=== PATIENT | male | born 1965 | race Two or more races ===

== ENCOUNTER → 2016-11-16 | Outpatient (CLI) | payer BC ==
[2016-11-16 09:19] LABS: Aty Lym Flag Slight; CH 31.2; CHCM 33.3; HCT 42.2 % (39.0-53.0); HDW 1.97; HGB 14.3 gm/dL (13.0-17.5); MCH 31.9 pg (25.0-35.0); Mean Platelet Volume 7.7; RBC 4.49 m/uL (4.30-5.90); RDW 13.9 % (11.5-15.5); WBC 4.1 k/uL (3.8-10.6); WBC (Perox) 3.81
[2016-11-16 10:33] LABS: Add Differential Manual Differential
[2016-11-16 10:36] LABS: ALT 39 U/L (21-72); AST 28 U/L (17-59); Alkaline Phosphatase 45 U/L (38-126); Anion Gap 10 mmol/L; Blood Urea Nitrogen 10 mg/dL (9-20); Calcium 9.5 mg/dL (8.4-10.2); Carbon Dioxide 26 mmol/L (22-30); Chloride 107 mmol/L (98-107); Cholesterol 198 mg/dL (<200); Glucose 128 mg/dL (74-99); HDL Cholesterol 65 mg/dL (40-60); Non-African American GFR(MDRD) >60 (>60 ml/min/1.73 sqM); Potassium 4.3 mmol/L (3.5-5.1); Sodium 143 mmol/L (137-145); Total Bilirubin 0.4 mg/dL (0.2-1.3); Total Protein 7.1 g/dL (6.3-8.2); Triglycerides 77 mg/dL (<150)
[2016-11-16 10:37] LABS: Nucleated Red Blood Cells 0 /100 WBC (0-0); Target Cells Present; Total Cells Counted 100
[2016-11-16 10:58] LABS: Prostate Specific Antigen 0.62 ng/mL (0.00-4.00)
== END ==
LOC: LABWHC1 08:26
PROVIDERS: ATTEND Family Medicine
DX: Z00.00 Encounter for general adult medical examination without abnormal findings (principal); Z12.5 Encounter for screening for malignant neoplasm of prostate
CPT/HCPCS: 36415; 80053; 80061; 84153; 85025

== ENCOUNTER → 2018-01-07 | Outpatient (CLI) | payer BC ==
--- NOTE | 2018-01-07 09:27 | US ---
EXAMINATION TYPE: US prostate transrectal DATE OF EXAM: 01/07/2018 COMPARISON: NONE CLINICAL HISTORY: R97.20 Elevated Elevated prostate specific antigen. Elevated PSA This examination was performed using the transrectal probe. EXAM MEASUREMENTS: Gland Size: 4.8 x 2.3 x 4.6cm Volume: 25.6ml Predicted PSA: 3.1 Actual PSA (if available):4.2 Somewhat heterogeneous gland with calcifications seen within central zone. IMPRESSION: Heterogenous peripheral zone without distinct nodule. Consider biopsy given discordant a ctual PSA and predicted PSA. Predicted PSA = volume x 0.12 ng/ml Calculated Volume = 0.5236 x L x W x H
== END | disposition home or self-care (01) ==
LOC: RADUSMAIN 07:57
PROVIDERS: ATTEND Family Medicine
DX: R97.20 Elevated prostate specific antigen [PSA] (principal)
CPT/HCPCS: 76872

== ENCOUNTER 2020-02-05 04:44 | Emergency (ER) | payer BC ==
[2020-02-05] MEDS ORDERED: SODIUM CHLORIDE 0.9% 1,000 ML IV STA (05:07)
--- NOTE | 2020-02-05 05:08 | ED ---
Overdose HPI - General Chief Complaint: Overdose Stated Complaint: Overdose Time Seen by Provider: 02/05/20 05:07 Source: patient, EMS, RN notes reviewed, old records reviewed Mode of arrival: EMS Limitations: no limitations - History of Present Illness Initial Comments: D This is a 54-year-old male DF for evaluation of accidental overdose and drug ingestion. Patient accommodation of opiate and alcohol prior to arrival. EMS gave Narcan twice, patient here in the emergency department awake and alert observed and answering questions. Patient denying any complaints does admit to taking medication no attempted suicide MD Complaint: accidental overdose -: unknown Intent: unwilling to say How Overdose Was Discovered: family/friend present at time Context: Intentional Overdose: drug/ETOH problems Context: Accidental Overdose: wanted to get high Treatments Prior to Arrival: none, narcan, IV fluids - Related Data Allergies Allergy/AdvReac Type Severity Reaction Status Date / Time No Known Allergies Allergy Verified 02/05/20 04:53 Review of Systems ROS Statement: Those systems with pertinent positive or pertinent negative responses have been documented in the HPI. ROS Other: All systems not noted in ROS Statement are negative. Past Medical History Past Medical History: Diabetes Mellitus, Hypertension History of Any Multi-Drug Resistant Organisms: None Reported Past Surgical History: No Surgical Hx Reported Past Psychological History: No Psychological Hx Reported Smoking Status: Current every day smoker Past Alcohol Use History: Daily Past Drug Use History: Cocaine General Exam Limitations: no limitations General appearance: alert, in no apparent distress, appears intoxicated, lethargic Head exam: Present: atraumatic, normocephalic, normal inspection Eye exam: Present: normal appearance, PERRL, EOMI. Absent: scleral icterus, conjunctival injection, periorbital swelling ENT exam: Present: normal exam, mucous membranes moist Neck exam: Present: normal inspection. Absent: tenderness, meningismus, lymphadenopathy Respiratory exam: Present: normal lung sounds bilaterally. Absent: respiratory distress, wheezes, rales, rhonchi, stridor Cardiovascular Exam: Present: regular rate, normal rhythm, normal heart sounds. Absent: systolic murmur, diastolic murmur, rubs, gallop, clicks GI/Abdominal exam: Present: soft, normal bowel sounds. Absent: distended, tenderness, guarding, rebound, rigid Extremities exam: Present: normal inspection, full ROM, normal capillary refill. Absent: tenderness, pedal edema, joint swelling, calf tenderness Back exam: Present: normal inspection Neurological exam: Present: alert, oriented X3, CN II-XII intact Psychiatric exam: Present: normal affect, normal mood Skin exam: Present: warm, dry, intact, normal color. Absent: rash Course Vital Signs 02/05/20 02/05/20 02/05/20 04:45 05:00 06:00 Temperature 98.0 F Pulse Rate 85 82 79 Respiratory 16 16 14 Rate Blood Pressure 137/84 122/89 120/78 O2 Sat by Pulse 95 96 99 Oximetry 02/05/20 02/05/20 07:00 07:08 Temperature 98.1 F 98.1 F Pulse Rate 79 79 Respiratory 14 14 Rate Blood Pressure 103/66 103/66 O2 Sat by Pulse 95 95 Oximetry - Reevaluation(s) Reevaluation #1: Medical record is reviewed Patient has significant improvement in symptoms awake and alert asking for discharge home Medical Decision Making - Medical Decision Making 54 male coming in with alcohol intoxication and suspected heroin versus opiate overdose symptoms resolved here in the ER patient's awake and alert and can be discharged home - Lab Data Result diagrams: 02/05/20 04:56 02/05/20 04:56 Lab Results 02/05/20 02/05/20 02/05/20 Range/Units 04:56 04:56 06:07 WBC 3.6 L (3.8-10.6) k/uL RBC 4.30 (4.30-5.90) m/uL Hgb 13.6 (13.0-17.5) gm/dL Hct 42.8 (39.0-53.0) % MCV 99.5 (80.0-100.0) fL MCH 31.5 (25.0-35.0) pg MCHC 31.7 (31.0-37.0) g/dL RDW 14.2 (11.5-15.5) % Plt Count 209 (150-450) k/uL Neutrophils % 61 % Lymphocytes % 26 % Monocytes % 8 % Eosinophils % 1 % Basophils % 1 % Neutrophils # 2.2 (1.3-7.7) k/uL Lymphocytes # 1.0 (1.0-4.8) k/uL Monocytes # 0.3 (0-1.0) k/uL Eosinophils # 0.0 (0-0.7) k/uL Basophils # 0.0 (0-0.2) k/uL Sodium 142 (137-145) mmol/L Potassium 4.0 (3.5-5.1) mmol/L Chloride 108 H (98-107) mmol/L Carbon Dioxide 17 L (22-30) mmol/L Anion Gap 17 mmol/L BUN 5 L (9-20) mg/dL Creatinine 0.90 (0.66-1.25) mg/dL Est GFR (CKD-EPI)AfAm >90 (>60 ml/min/1.73 sqM) Est GFR (CKD-EPI)NonAf >90 (>60 ml/min/1.73 sqM) Glucose 295 H (74-99) mg/dL Calcium 8.8 (8.4-10.2) mg/dL Total Bilirubin 0.1 L (0.2-1.3) mg/dL AST 61 H (17-59) U/L ALT 33 (4-49) U/L Alkaline Phosphatase 45 (38-126) U/L Total Protein 7.2 (6.3-8.2) g/dL Albumin 4.4 (3.5-5.0) g/dL Salicylates <1.0 mg/dL Urine Opiates Screen Not Detected (NotDetected) Ur Oxycodone Screen Not Detected (NotDetected) Urine Methadone Screen Not Detected (NotDetected) Ur Propoxyphene Screen Not Detected (NotDetected) Acetaminophen <10.0 ug/mL Ur Barbiturates Screen Not Detected (NotDetected) U Tricyclic Antidepress Not Detected (NotDetected) Ur Phencyclidine Scrn Not Detected (NotDetected) Ur Amphetamines Screen Not Detected (NotDetected) U Methamphetamines Scrn Not Detected (NotDetected) U Benzodiazepines Scrn Not Detected (NotDetected) Urine Cocaine Screen Detected H (NotDetected) U Marijuana (THC) Screen Not Detected (NotDetected) Serum Alcohol 176 mg/dL Disposition Clinical Impression: Accidental drug overdose, Drug overdose, Alcohol intoxication Disposition: HOME SELF-CARE Condition: Good Instructions (If sedation given, give patient instructions): Adult Overdose (ED) Is patient prescribed a controlled substance at d/c from ED?: No Referrals: Lawson Darling MD [Primary Care Provider] - 1-2 days
[2020-02-05 06:10] VITALS: PULSE 79; RESP 14
[2020-02-05 06:27] LABS: Basophils % (A) 1 %; Eosinophils % (A) 1 %; HCT 42.8 % (39.0-53.0); HGB 13.6 gm/dL (13.0-17.5); Lymphocytes % (A) 26 %; MCH 31.5 pg (25.0-35.0); MCHC 31.7 g/dL (31.0-37.0); MCV 99.5 fL (80.0-100.0); Monocytes # (A) 0.3 k/uL (0-1.0); Monocytes % (A) 8 %; Neutrophils # (A) 2.2 k/uL (1.3-7.7); Neutrophils % (A) 61 %; Platelet Count 209 k/uL (150-450); RDW 14.2 % (11.5-15.5); WBC 3.6 k/uL (3.8-10.6)
[2020-02-05 06:35] LABS: ALT 33 U/L (4-49); AST 61 U/L (17-59); Acetaminophen <10.0 ug/mL; African American GFR (CKD) >90 (>60 ml/min/1.73 sqM); Albumin 4.4 g/dL (3.5-5.0); Alkaline Phosphatase 45 U/L (38-126); Blood Urea Nitrogen 5 mg/dL (9-20); Calcium 8.8 mg/dL (8.4-10.2); Carbon Dioxide 17 mmol/L (22-30); Glucose 295 mg/dL (74-99); Non-African American GFR(CKD) >90 (>60 ml/min/1.73 sqM); Salicylate <1.0 mg/dL; Sodium 142 mmol/L (137-145); Total Bilirubin 0.1 mg/dL (0.2-1.3); Total Protein 7.2 g/dL (6.3-8.2)
[2020-02-05 06:40] LABS: Amphetamine Screen,Urine Not Detected (NotDetected); Barbiturate Screen,Urine Not Detected (NotDetected); Benzodiazepines Screen,Urine Not Detected (NotDetected); Cocaine Screen,Urine Detected (NotDetected); Methadone Screen, Urine Not Detected (NotDetected); Opiate Screen,Urine Not Detected (NotDetected); Oxycodone Screen, Urine Not Detected (NotDetected); Phencyclidine Screen,Urine Not Detected (NotDetected); Tricyclic Antidepressant,Urine Not Detected (NotDetected); Urn Cannabinoid Scrn Not Detected (NotDetected)
[2020-02-05 06:48] LABS: Alcohol 176 mg/dL
[2020-02-05 06:50] LABS: Anion Gap 17 mmol/L; Chloride 108 mmol/L (98-107)
[2020-02-05 07:02] VITALS: BP 103/66; TEMP 98.1
== END 2020-02-05 07:12 | disposition home or self-care (01) ==
LOC: EC 04:44
DX: T40.601A Poisoning by unspecified narcotics, accidental (unintentional), initial encounter (principal); F10.129 Alcohol abuse with intoxication, unspecified; F17.200 Nicotine dependence, unspecified, uncomplicated
CPT/HCPCS: 36415; 80053; 80306; 80320; 80329; 83520; 85025; 96360; 99285

== ENCOUNTER 2020-04-22 15:10 | Emergency (ER) | payer BC ==
[2020-04-22 15:16] VITALS: BP 148/88; PULSE 94; RESP 18; TEMP 99.2
--- NOTE | 2020-04-22 15:54 | ED ---
Alcohol HPI - General Chief Complaint: Alcohol Stated Complaint: Alcohol Detox Time Seen by Provider: 04/22/20 15:24 Source: patient Mode of arrival: ambulatory Limitations: no limitations - History of Present Illness Initial Comments: Patient is a 55-year-old male with history of substance abuse and alcohol abuse presenting to the emergency department with chief complaint of alcohol intoxication and psychiatric evaluation. Patient states he has been a heavy drinker for about 30 years. Patient reports he typically drinks 6-12 beers per day. Patient states never attempted rehab but states he feels ready now. Patient states his nephew recently committed suicide and this has put him over the top. He denies any homicidal, suicidal thoughts or ideations. His friend spoke outside of the examination room and said the patient has also been doing crack and had once overdosed after he smoked crack that was laced with fentanyl. His friend also states his drinking behavior has been drastically increased since his nephew's . She states the patient lives with a roommate in his house - Related Data Allergies Allergy/AdvReac Type Severity Reaction Status Date / Time No Known Allergies Allergy Verified 04/22/20 15:16 Review of Systems ROS Statement: Those systems with pertinent positive or pertinent negative responses have been documented in the HPI. ROS Other: All systems not noted in ROS Statement are negative. Past Medical History Past Medical History: Diabetes Mellitus, Hypertension History of Any Multi-Drug Resistant Organisms: None Reported Past Surgical History: No Surgical Hx Reported Past Psychological History: No Psychological Hx Reported Smoking Status: Current every day smoker Past Alcohol Use History: Abuse, Daily Past Drug Use History: Cocaine General Exam Limitations: no limitations General appearance: alert, in no apparent distress Head exam: Present: atraumatic, normocephalic, normal inspection Eye exam: Present: normal appearance, PERRL, EOMI Pupils: Present: normal accommodation ENT exam: Present: normal exam, normal oropharynx, mucous membranes dry Neck exam: Present: normal inspection, full ROM. Absent: tenderness Respiratory exam: Present: normal lung sounds bilaterally. Absent: respiratory distress, wheezes Cardiovascular Exam: Present: normal rhythm, tachycardia, normal heart sounds Extremities exam: Present: normal inspection, full ROM Back exam: Present: normal inspection, full ROM Neurological exam: Present: alert, oriented X3 Psychiatric exam: Present: normal affect, normal mood Skin exam: Present: warm, dry, intact, normal color Course Vital Signs 04/22/20 04/22/20 04/22/20 15:13 15:16 16:16 Temperature 99.2 F Pulse Rate 94 Respiratory 18 18 18 Rate Blood Pressure 148/88 O2 Sat by Pulse 96 Oximetry Medical Decision Making - Medical Decision Making Patient 55-year-old male with history of substance abuse and alcohol abuse presenting to the emergency department for psychiatric evaluation alcohol intoxication. I evaluated the patient and he was medically cleared for psychiatric evaluation. Patient did drink prior to ED arrival and laboratory work was obtained to determine alcohol levels. While the laboratory work was pending, patient decided to leave AGAINST MEDICAL ADVICE. Case discussed with physician. - Lab Data Lab Results 04/22/20 Range/Units 17:15 Urine Color Yellow Urine Appearance Clear (Clear) Urine pH 6.0 (5.0-8.0) Ur Specific [place] 1.005 (1.001-1.035) Urine Protein Negative (Negative) Urine Glucose (UA) 4+ H (Negative) Urine Ketones Negative (Negative) Urine Blood Negative (Negative) Urine Nitrite Negative (Negative) Urine Bilirubin Negative (Negative) Urine Urobilinogen <2.0 (<2.0) mg/dL Ur Leukocyte Esterase Negative (Negative) Urine Opiates Screen Not Detected (NotDetected) Ur Oxycodone Screen Not Detected (NotDetected) Urine Methadone Screen Not Detected (NotDetected) Ur Propoxyphene Screen Not Detected (NotDetected) Ur Barbiturates Screen Not Detected (NotDetected) U Tricyclic Antidepress Not Detected (NotDetected) Ur Phencyclidine Scrn Not Detected (NotDetected) Ur Amphetamines Screen Not Detected (NotDetected) U Methamphetamines Scrn Not Detected (NotDetected) U Benzodiazepines Scrn Not Detected (NotDetected) Urine Cocaine Screen Not Detected (NotDetected) U Marijuana (THC) Screen Not Detected (NotDetected) Disposition Clinical Impression: Alcoholic intoxication Disposition: Left Against Medical Advice Condition: Good Is patient prescribed a controlled substance at d/c from ED?: No Referrals: Lawson Darling MD [Primary Care Provider] - 1-2 days Time of Disposition: 18:25
[2020-04-22 17:56] LABS: Appearance,Urine Clear (Clear); Color,Urine Yellow; Glucose,Urine (UA) 4+ (Negative); Ketones,Urine Negative (Negative); Protein,Urine Negative (Negative); Specific Gravity,Urine 1.005 (1.001-1.035)
[2020-04-22 17:57] LABS: Bilirubin,Urine Negative (Negative); Blood,Urine Negative (Negative); Leukocyte Esterase,Urine Negative (Negative); Nitrite,Urine Negative (Negative); Urobilinogen,Urine <2.0 mg/dL (<2.0)
[2020-04-22 18:06] LABS: Amphetamine Screen,Urine Not Detected (NotDetected); Barbiturate Screen,Urine Not Detected (NotDetected); Benzodiazepines Screen,Urine Not Detected (NotDetected); Cocaine Screen,Urine Not Detected (NotDetected); Methadone Screen, Urine Not Detected (NotDetected); Opiate Screen,Urine Not Detected (NotDetected); Oxycodone Screen, Urine Not Detected (NotDetected); Phencyclidine Screen,Urine Not Detected (NotDetected); Tricyclic Antidepressant,Urine Not Detected (NotDetected); Urn Cannabinoid Scrn Not Detected (NotDetected)
== END 2020-04-22 17:40 | disposition left against medical advice (07) ==
LOC: EC 15:10
DX: F10.129 Alcohol abuse with intoxication, unspecified (principal); Y90.9 Presence of alcohol in blood, level not specified; F17.200 Nicotine dependence, unspecified, uncomplicated; Z53.29 Procedure and treatment not carried out because of patient's decision for other reasons
CPT/HCPCS: 80306; 81003; 99283

== ENCOUNTER 2020-04-24 13:10 | Emergency (ER) | payer BC ==
[2020-04-24 13:35] VITALS: BP 150/100; PULSE 93; RESP 18; TEMP 98.3
--- NOTE | 2020-04-24 13:48 | ED ---
General Adult HPI - General Chief complaint: Alcohol Stated complaint: Alcohol Time Seen by Provider: 04/24/20 13:37 Source: patient Mode of arrival: ambulatory Limitations: no limitations - History of Present Illness Initial comments: Dictation was produced using [employer] dictation software. please excuse any grammatical, word or spelling errors. This patient was cared for during a federal and state declared state of emergency secondary to Covid 19 Chief Complaint: 55-year-old male looking for alcohol rehab History of Present Illness: 55-year-old male patient states that over the last week she's been drinking heavily. He's been having multiple 24 ounce beers a day. Patient states that he is drinking all day today. He feels depressed however he is not suicidal or homicidal. Denies any psychiatric history. He is upset because his parents are very sick and his other young family member recently committed suicide. Patient has ever having had EtOH withdrawal in the past. Does not feel shaky. The ROS documented in this emergency department record has been reviewed and confirmed by me. Those systems with pertinent positive or negative responses have been documented in the HPI. All other systems are other negative and/or noncontributory. PHYSICAL EXAM: General Impression: Alert and oriented x3, not in acute distress HEENT: Normocephalic atraumatic, extra-ocular movements intact, pupils equal and reactive to light bilaterally, mucous membranes moist. Cardiovascular: Heart regular rate and rhythm Chest: Able to complete full sentences, no retractions, no tachypnea Abdomen: abdomen soft, non-tender, non-distended, no organomegaly Musculoskeletal: Pulses present and equal in all extremities, no peripheral e stacy Motor: no focal deficits noted Neurological: CN II-XII grossly intact, no focal motor or sensory deficits noted Skin: Intact with no visualized rashes Psych: Depressed ED course: 55-year-old male presents with request for alcohol detoxification. Vital signs upon arrival are within acceptable limits. Discussed with patient that we are not a alcohol rehab facility. He doesn't appear to be significantly inebriated. He is not showing any signs of withdrawal. He is not suicidal or homicidal.Arrangements were made for patient to be accepted at [facility]. Patient instructed to go there to be admitted to the rehab program. - Related Data Allergies Allergy/AdvReac Type Severity Reaction Status Date / Time No Known Allergies Allergy Verified 04/24/20 13:34 Review of Systems ROS Statement: Those systems with pertinent positive or pertinent negative responses have been documented in the HPI. ROS Other: All systems not noted in ROS Statement are negative. Past Medical History Past Medical History: Diabetes Mellitus, Hypertension History of Any Multi-Drug Resistant Organisms: None Reported Past Surgical History: No Surgical Hx Reported Past Psychological History: No Psychological Hx Reported Smoking Status: Current every day smoker Past Alcohol Use History: Abuse, Daily Past Drug Use History: Cocaine General Exam Limitations: no limitations Course Vital Signs 04/24/20 13:30 Temperature 98.3 F Pulse Rate 93 Respiratory 18 Rate Blood Pressure 150/100 O2 Sat by Pulse 98 Oximetry Medical Decision Making - Lab Data Lab Results 04/24/20 Range/Units 14:06 POC Glucose (mg/dL) 300 H (75-99) mg/dL POC Glu Record Pressman ID Jazlyn Moya Disposition Clinical Impression: Alcoholism Disposition: HOME SELF-CARE Condition: Good Instructions (If sedation given, give patient instructions): Alcohol Intoxication (ED) Additional Instructions: Please follow up with [facility] as instructed by nurse Is patient prescribed a controlled substance at d/c from ED?: No Referrals: Lawson Darling MD [Primary Care Provider] - 1-2 days Time of Disposition: 14:38
[2020-04-24 14:08] LABS: Glucose,Whole Blood 300 mg/dL (75-99)
== END 2020-04-24 14:53 | disposition home or self-care (01) ==
LOC: EC 13:10
DX: F10.20 Alcohol dependence, uncomplicated (principal); F17.200 Nicotine dependence, unspecified, uncomplicated; Y90.9 Presence of alcohol in blood, level not specified
CPT/HCPCS: 36415; 99284

== ENCOUNTER 2022-09-26 17:13 | Emergency (ER) | payer BC, OTHER ==
[2022-09-26 17:29] VITALS: TEMP 98
[2022-09-26] MEDS ORDERED: KETOROLAC 15 MG/ML 1 ML VIAL IM STA (17:55)
[2022-09-26] MEDS ORDERED: ORPHENADRINE 30 MG/ML 2 ML VIAL IM STA (17:55)
--- NOTE | 2022-09-26 17:58 | ED ---
Back Pain HPI - General Chief Complaint: Back Pain/Injury Stated Complaint: back pain Time Seen by Provider: 09/26/22 17:49 Source: patient, RN notes reviewed Limitations: no limitations - History of Present Illness Initial Comments: This is a nontoxic appearing 57-year-old male that presents ambulatory with complaints of left lower back pain on and off for a month. States that he was at work does a lot of bending the pain is worse. Worse when he sits or twists. Denies any heavy lifting or injuries. He believes this is related to repetitive movements. Didn't go to the clinic who recommended he come to the emergency room for x-ray. Does have a history of hypertension and diabetes MD Complaint: back pain -: month(s) Similar Symptoms Previously: Yes Place: work Radiation: none Severity: moderate Severity scale (1-10): 9 Consistency: intermittent Improves With: none Worsens With: movement ( bending or twisting) Context: bending Associated Symptoms: denies other symptoms - Related Data Previous Rx's Medication Instructions Recorded Cyclobenzaprine [Flexeril] 10 mg PO TID PRN #15 tab 09/26/22 Ibuprofen [Motrin] 600 mg PO Q8HR PRN #30 tab 09/26/22 Lidocaine 5% Patch [Lidoderm] 1 patch TOPICAL DAILY 14 Days #14 09/26/22 patch Allergies Allergy/AdvReac Type Severity Reaction Status Date / Time No Known Allergies Allergy Verified 04/24/20 13:34 Review of Systems ROS Statement: Those systems with pertinent positive or pertinent negative responses have been documented in the HPI. ROS Other: All systems not noted in ROS Statement are negative. Past Medical History Past Medical History: Diabetes Mellitus, Hypertension History of Any Multi-Drug Resistant Organisms: None Reported Past Surgical History: No Surgical Hx Reported Past Psychological History: No Psychological Hx Reported Smoking Status: Current every day smoker Past Alcohol Use History: Abuse, Daily Past Drug Use History: Cocaine General Exam Limitations: no limitations General appearance: alert, in no apparent distress Head exam: Present: atraumatic Neck exam: Absent: tenderness, meningismus Respiratory exam: Absent: respiratory distress, accessory muscle use Cardiovascular Exam: Present: regular rate Back exam: Present: paraspinal tenderness (left lumbar). Absent: CVA tenderness (R), CVA tenderness (L), vertebral tenderness Neurological exam: Present: alert, oriented X3, normal gait Psychiatric exam: Present: normal affect, normal mood Skin exam: Present: warm, dry, normal color. Absent: cyanosis, diaphoretic, pallor Course Vital Signs 09/26/22 09/26/22 17:26 19:04 Temperature 98 F Pulse Rate 86 100 Respiratory 20 18 Rate Blood Pressure 132/76 171/82 O2 Sat by Pulse 98 100 Oximetry Medical Decision Making - Medical Decision Making X-ray lumbar spine interpreted by me shows no malalignment or acute fracture. Radiologist interpretation shows no fracture or malalignment. Soft tissues are unremarkable. Due to complaints of left-sided back pain urinalysis was ordered. Urinalysis negative for infection or hematuria, positive for glucose. Patient is diabetic with history of hypertension. Patient is up ambulating in the hallway. No bowel or bladder incontinence. No trauma. Patient states worse with bending and twisting. No right concerning red flag symptoms. Patient was given Norflex, Toradol and Lidoderm patch for his pain and discomfort. Prescription was written for Lidoderm patches, Motrin and Flexeril Dr. Cruz Was pt. sent in by a medical professional or institution? @ -urgent care Did you speak to anyone other than the patient for history? @ -no Did you review nursing and triage notes? @ -yes i agree Were old charts reviewed? @ -no Differential Diagnosis? @ -Differential Back Pain: Strain, zoster, cauda equina syndrome, epidural abscess, vertebral osteomyelitis, discitis, fracture, subluxation, disc herniation, DJD, spinal stenosis, dissection, AAA, pancreatitis, peptic ulcer disease, pyelonephritis, kidney stone, this is not meant to be an all-inclusive list. EKG interpreted by me (3pts min.)? @ -[none] X-rays interpreted by me (1pt min.)? @ -yes as above CT interpreted by me (1pt min.)? @ -[none] U/S interpreted by me (1pt. min.)? @ -[none] What testing was considered but not performed? (CT, X-rays, U/S, labs)? Why? @ no What meds were considered but not given? Why? @ -none Did you discuss the management of the patient with other professionals? @ -no Did you reconcile home meds? @ -no Was smoking cessation discussed for >3mins.? @ -no Was critical care preformed (if so, how long)? @ -no Were there social determinants of health that impacted care today? How? (Homelessness, low income, unemployed, alcoholism, drug addiction, transportation, low edu. Level, literacy, decrease access to med. care, group home, rehab)? @ -none Was there de-escalation of care discussed even if they declined? (Discuss DNR or withdrawal of care, Hospice)? @ -no What co-morbidities impacted this encounter? (DM, HTN, Smoking, COPD, CAD, Cancer, CVA, Hep., AIDS, mental health diagnosis, sleep apnea, morbid obesity)? @ -Diabetes, hypertension Was patient admitted / discharged? @ -Discharged Undiagnosed new problem with uncertain prognosis? @ -[none] Drug Therapy requiring intensive monitoring for toxicity (Heparin, Nitro, Insulin, Cardizem)? @ -no Were any procedures done? @ -no Diagnosis/symptom? @ -[default] Acute, or Chronic, or Acute on Chronic? @ -acute Uncomplicated (without systemic symptoms) or Complicated (systemic symptoms)? @ -Uncomplicated Side effects of treatment? @ -[none] Exacerbation, Progression, or Severe Exacerbation] @ -[no] Poses a threat to life or bodily function? @ -[no] - Lab Data Lab Results 09/26/22 Range/Units 18:35 Urine Color Colorless Urine Appearance Clear (Clear) Urine pH 5.5 (5.0-8.0) Ur Specific [place] 1.002 (1.001-1.035) Urine Protein Negative (Negative) Urine Glucose (UA) 3+ H (Negative) Urine Ketones Negative (Negative) Urine Blood Negative (Negative) Urine Nitrite Negative (Negative) Urine Bilirubin Negative (Negative) Urine Urobilinogen <2.0 (<2.0) mg/dL Ur Leukocyte Esterase Negative (Negative) Disposition Clinical Impression: Low back pain Disposition: HOME SELF-CARE Condition: Good Instructions (If sedation given, give patient instructions): Acute Low Back Pain (ED) Additional Instructions: Take Tylenol and Motrin as needed for any pain or discomfort. Use Lidoderm patches to the site of pain. You can also take Flexeril as a muscle relaxer as needed. Do not drink alcohol or operate machinery when taking this muscle relaxer. Follow-up with the primary care doctor next week. Prescriptions: Cyclobenzaprine [Flexeril] 10 mg PO TID PRN #15 tab PRN Reason: Muscle Spasm Lidocaine 5% Patch [Lidoderm] 1 patch TOPICAL DAILY 14 Days #14 patch Ibuprofen [Motrin] 600 mg PO Q8HR PRN #30 tab PRN Reason: Pain Is patient prescribed a controlled substance at d/c from ED?: No Referrals: Lawson Darling MD [Primary Care Provider] - 1-2 days Time of Disposition: 18:54
[2022-09-26] MEDS ORDERED: LIDOCAINE 5% PATCH TOPICAL SCH (18:00)
--- NOTE | 2022-09-26 18:42 | XR ---
PROCEDURE: XR lumbar spine - 3V DATE AND TIME: 09/26/2022 6:13 PM CLINICAL INDICATION: low back pain TECHNIQUE: Department protocol COMPARISON: None FINDINGS: There is no fracture or malalignment. Mild/moderate multilevel lumbar spondylosis noted. The soft tissues are unremarkable. IMPRESSION: No acute process.
[2022-09-26 18:49] LABS: Appearance,Urine Clear (Clear); Bilirubin,Urine Negative (Negative); Blood,Urine Negative (Negative); Color,Urine Colorless; Glucose,Urine (UA) 3+ (Negative); Ketones,Urine Negative (Negative); Leukocyte Esterase,Urine Negative (Negative); Nitrite,Urine Negative (Negative); PH, Urine 5.5 (5.0-8.0); Protein,Urine Negative (Negative); Specific Gravity,Urine 1.002 (1.001-1.035); Urobilinogen,Urine <2.0 mg/dL (<2.0)
[2022-09-26 19:04] VITALS: BP 171/82; PULSE 100; RESP 18
== END 2022-09-26 19:04 | disposition home or self-care (01) ==
LOC: EC 17:13
DX: M54.50 Low back pain, unspecified (principal); I10 Essential (primary) hypertension; E11.9 Type 2 diabetes mellitus without complications; F17.200 Nicotine dependence, unspecified, uncomplicated
CPT/HCPCS: 81003; 72100; 99284; 96372 ×2; J2360; J1885

== ENCOUNTER → 2022-10-01 | Outpatient (CLI) | payer OTHER ==
--- NOTE | 2022-10-01 13:54 | CT ---
EXAMINATION TYPE: CT lumbar spine wo con DATE OF EXAM: 10/01/2022 1:38 PM COMPARISON: None HISTORY: Low back pain CT DLP: 950.20 mGycm Automated exposure control for dose reduction was used. Unenhanced CT of the lumbar spine was performed. Bone and soft tissue window settings are submitted as well as coronal and sagittal reconstructions. L1-L2: Normal disc space height. No disc herniation protrusion or central stenosis. No facet joint arthropathy. No evidence for foraminal encroachment. L2-L3: Mild degenerative disc space narrowing. Mild posterior disc bulge with minimal effacement vent ral thecal sac. No evidence for disc herniation or central stenosis. Neural foramina are patent bilat erally. Mild ventral spondylosis. L3-L4: Normal disc space height. No disc herniation protrusion or central stenosis. No facet joint arthropathy. No evidence for foraminal encroachment. L4-L5: Mild degenerative disc space narrowing. Prominent disc bulge far laterally into the right. Sub ligamentous herniation is difficult to exclude. Mild right foraminal encroachment. No central stenosi s. L5-S1: Normal disc space height. No disc herniation protrusion or central stenosis. No facet joint arthropathy. No evidence for foraminal encroachment. Lumbar segments are intact. No evidence for fracture or malalignment. IMPRESSION: 1. Mild degenerative disc space narrowing as discussed above. 2. Far lateral into the right L4-5 broad-based disc bulge. Herniation difficult to exclude. Mild righ t neural foraminal encroachment.
== END | disposition home or self-care (01) ==
LOC: RADCTMAIN 13:15
PROVIDERS: ATTEND Emergency Medicine
DX: S39.012D Strain of muscle, fascia and tendon of lower back, subsequent encounter (principal); M51.36 Other intervertebral disc degeneration, lumbar region; M99.73 Connective tissue and disc stenosis of intervertebral foramina of lumbar region
CPT/HCPCS: 72131

== ENCOUNTER → 2023-01-30 | Outpatient (CLI) | payer OTHER ==
[2023-01-30 14:48] VITALS: BP 129/81; PULSE 107; RESP 18
== END ==
LOC: PNWHC3 12:30
PROVIDERS: ATTEND Specialist
DX: M51.36 Other intervertebral disc degeneration, lumbar region (principal); F17.200 Nicotine dependence, unspecified, uncomplicated
CPT/HCPCS: 99211

== ENCOUNTER 2023-02-25 08:46 | Day surgery (SDC) | payer OTHER ==
[2023-02-25 09:23] LABS: Glucose,Whole Blood 172 mg/dL (70-110)
[2023-02-25 09:24] VITALS: TEMP 97
[2023-02-25] MEDS ORDERED: methylPREDNISolone ACETATE 40 MG/ML 1 ML VIAL ONE (09:34)
[2023-02-25] MEDS ORDERED: IOPAMIDOL M200 10 ML VIAL ONE (09:34)
--- NOTE | 2023-02-25 09:42 | P.PCN ---
Date of Procedure: 02/25/23 Description of Procedure: Procedure: 1. L4-L5 Epidural steroid injection under fluoroscopic guidance # 1/ , 2. Lumbar epidurogram PREOPERATIVE DIAGNOSIS: Lumbar degenerative disc disease, and Lumbar radiculopathy. POSTOPERATIVE DIAGNOSIS: Lumbar degenerative disc disease, and Lumbar radiculopathy. SURGEON: Brett Oruorke ANESTHESIA: Local with 1% lidocaine, and IV sedation: None EBL: None. Specimen removed: None Fluoroscopic image: saved to electronic medical records PROCEDURE INDICATION: The patient had history of Lumbar degenerative disc disease and Lumbar radiculopathy. Failed to conservative therapy. Presented for epidural steroid injection. PROCEDURE DESCRIPTION: The patient was seen and identified in the preoperative area. Risks, benefits, complications, and alternatives were discussed with the patient. The patient agreed to proceed with the procedure and signed the consent. IV was started, and vital signs were stable. Patient was taken to the procedure area, and time out was completed. The patient was placed in the prone position on procedure table and a pillow was placed under the abdomen to reduce lumbar lordosis. The lumbosacral area was prepped and draped in the usual sterile fashion. Critical pause was taken. Vital signs were closely monitored during the procedure. Using anterior-posterior fluoroscopy, the L4-L5 interlaminar space was identified, and skin and deeper tissues were localized with 1% lidocaine. Using anterior-posterior fluoroscopy, lateral fluoroscopy, and [id number] technique, a 20 gauge 3.5 Tuohy epidural needle entered the epidural space. After negative aspiration of CSF and blood with no paresthesias, 1 ml of [id number] contrast dye was injected and an excellent epidurogram was seen. Again after negative aspiration of CSF and blood with no paresthesias, 8 mL of block solution was injected into the epidural space. Block solution contained 40 mg of Depo-Medrol, and 7 mL of preservative-free normal saline. Needle was withdrawn intact, skin was cleansed, and bandages were applied. COMPLICATIONS: None. DISPOSITION / PLANS: The patient was placed in a supine position and transferred to the recovery area in a stable condition for observation. Patient was discharged from the recovery room after meeting discharge criteria. Home discharge instructions given to the patient by the staff. The patient was reexamined prior to discharge. The patient will schedule a follow up in the clinic in 4 weeks.
[2023-02-25] MEDS ORDERED: LACTATED RINGERS 1,000 ML IV SCH (09:45)
[2023-02-25 09:48] VITALS: PULSE 85
[2023-02-25 09:55] VITALS: BP 122/61; RESP 16
--- NOTE | 2023-02-25 10:13 | FL ---
Intraoperative/procedural fluoroscopic services were provided. Total fluoroscopy time is 3 seconds wi th a total of 3 submitted images to PACS. Please see the operative/procedural note for further detail s. DAP: [id number] mGym2
== END 2023-02-25 10:02 | disposition home or self-care (01) ==
LOC: ORPAIN 08:46
DX: M51.16 Intervertebral disc disorders with radiculopathy, lumbar region (principal); E11.9 Type 2 diabetes mellitus without complications; I10 Essential (primary) hypertension; E78.00 Pure hypercholesterolemia, unspecified; Z98.890 Other specified postprocedural states; Z79.84 Long term (current) use of oral hypoglycemic drugs; Z79.82 Long term (current) use of aspirin; Z79.899 Other long term (current) drug therapy
CPT/HCPCS: 62323; J1030; Q9966

== ENCOUNTER 2023-05-11 12:45 | Inpatient (IN) | payer OTHER ==
[2023-05-11] MEDS ORDERED: PANTOPRAZOLE 40 MG/10 ML VIAL IVP STA (13:02)
[2023-05-11] MEDS ORDERED: SODIUM CHLORIDE 0.9% 1,000 ML IV STA (13:02)
[2023-05-11] MEDS ORDERED: ONDANSETRON 4 MG/2 ML VIAL IVP STA (13:02)
[2023-05-11] MEDS ORDERED: LORazepam 2 MG/ML INJ IV PRN ×2 (13:03)
[2023-05-11] MEDS ORDERED: THIAMINE 100 MG/ML 2 ML VIAL IM STA (13:03)
[2023-05-11] MEDS ORDERED: LORazepam 2 MG/ML INJ IV STA (13:05)
[2023-05-11 13:25] LABS: Basophils % (A) 0 %; Eosinophils # (A) 0.1 k/uL (0-0.7); Eosinophils % (A) 2 %; HGB 13.1 gm/dL (13.0-17.5); Lymphocytes # (A) 0.4 k/uL (1.0-4.8); Lymphocytes % (A) 7 %; MCHC 34.4 g/dL (31.0-37.0); MCV 98.8 fL (80.0-100.0); Mean Platelet Volume 9.7; Monocytes # (A) 0.5 k/uL (0-1.0); Monocytes % (A) 8 %; Neutrophils # (A) 5.3 k/uL (1.3-7.7); Neutrophils % (A) 83 %; RBC 3.85 m/uL (4.30-5.90); RDW 14.5 % (11.5-15.5); WBC 6.4 k/uL (3.8-10.6)
[2023-05-11 13:35] LABS: African American GFR (CKD) >90 (>60 ml/min/1.73 sqM); Albumin 4.5 g/dL (3.5-5.0); Alcohol <10 mg/dL; Alkaline Phosphatase 66 U/L (38-126); Amylase 39 U/L (30-110); Anion Gap 18 mmol/L; Blood Urea Nitrogen 4 mg/dL (9-20); Calcium 9.8 mg/dL (8.4-10.2); Carbon Dioxide 21 mmol/L (22-30); Chloride 97 mmol/L (98-107); Glucose 320 mg/dL (74-99); Lipase 161 U/L (23-300); Non-African American GFR(CKD) >90 (>60 ml/min/1.73 sqM); Potassium 3.7 mmol/L (3.5-5.1); Sodium 136 mmol/L (137-145); Total Bilirubin 1.5 mg/dL (0.2-1.3); Total Protein 7.5 g/dL (6.3-8.2)
[2023-05-11 13:44] LABS: ALT 200 U/L (4-49); AST 694 U/L (17-59)
[2023-05-11 13:45] LABS: Prothrombin Time 10.3 sec (9.0-12.0)
--- NOTE | 2023-05-11 13:47 | ED ---
General Adult HPI - General Chief complaint: Nausea/Vomiting/Diarrhea Stated complaint: Fall, weakness Time Seen by Provider: 05/11/23 12:47 Source: patient, RN notes reviewed, old records reviewed Mode of arrival: EMS Limitations: altered mental status, physical limitation - History of Present Illness Initial comments: Patient is a 58-year-old male with past medical history remarkable for diabetes, hypertension, chronic alcohol abuse who presents emergency Department after falling at home. Fell off the porch a few days ago. States he feels weak in both his his leg since the incident. States he cannot walk because of weakness. Has been unable to get up and move around. Has been having nausea, vomiting. Has been tremoring. States he drinks beer. Denies any history of alcohol withdrawals. Hasn't drank in a few days. Has no other acute complaints at this time. Denies chest pain, fevers, chills, cough, abdominal pain, nausea, vomiting. Endorses chronic low back pain. His no other acute complaints. Unknown if he lost consciousness. Presents for further evaluation. Currently covered in his own urine smells of alcohol and urine.Patient claims he has been stuck in bed and so weak he cannot move for the last few days since the f all.Patient denies any urinary or bowel incontinence or retention. Denies any saddle anesthesias. Endorses weakness but it appears to be diffuse in the upper extremities as well. - Related Data Home Medications Medication Instructions Recorded Confirmed Empagliflozin [Jardiance] 25 mg PO DAILY 02/21/23 05/11/23 lisinopriL 2.5 mg PO DAILY 02/21/23 05/11/23 metFORMIN HCL [Metformin HCl] 1,000 mg PO BID 02/21/23 05/11/23 Rosuvastatin [Crestor] 10 mg PO HS 05/11/23 05/11/23 Allergies Allergy/AdvReac Type Severity Reaction Status Date / Time No Known Allergies Allergy Verified 05/11/23 15:09 Review of Systems ROS Statement: Those systems with pertinent positive or pertinent negative responses have been documented in the HPI. Review of Systems: CONST: Denies fever EYES: Denies blurry vision ENT: Denies nasal congestion C/V: Denies Chest pain RESP: Denies shortness of breath GI: Denies abdominal pain : Denies dysuria SKIN: Denies rash. MSK: Endorses back pain NEURO: Endorses weakness ROS Other: All systems not noted in ROS Statement are negative. Past Medical History Past Medical History: Diabetes Mellitus, Hyperlipidemia, Hypertension Additional Past Medical History / Comment(s): lower back pain, hurt back at work History of Any Multi-Drug Resistant Organisms: None Reported Past Surgical History: Hernia Repair Past Anesthesia/Blood Transfusion Reactions: No Reported Reaction Past Psychological History: No Psychological Hx Reported Smoking Status: Never smoker Past Alcohol Use History: Occasional Past Drug Use History: None Reported - Past Family History Father Family Medical History: Cancer General Exam - General Exam Comments Initial Comments: General: Appears to be having alcohol withdrawals as patient has tongue fasciculations as well as generalized tremors. HEAD: Normal with no signs of head trauma. EYES: PERRLA, EOMI, conjunctiva normal, no discharge. Pupils are 3 mm equal bilaterally. ENT: Hearing grossly intact, normal oropharynx. Dry mucous membranes. RESPIRATORY: Clear breath sounds bilaterally. No wheezes, rales, or rhonchi. C/V: Regular rate and rhythm. S1 and S2 auscultated, no edema, peripheral pul ses 2+ and intact throughout ABD: Abd is soft, nontender, nondistended EXT: Normal range of motion, no obvious deformity. Patient has left lower lumbar spine tenderness to palpation primarily in the paraspinal muscles which patient states is chronic. No midline spinal tenderness to palpation of the thoracic, cervical spine. No step-offs or deformities. Pelvis is stable. No tenderness to palpation of the extremities. Able to move all 4 extremity is without issue except for generalized weakness. SKIN: No rashes or lesions observed on exposed skin. NEURO: Alert and oriented 4. Weakness that is symmetrical in bilateral lower extremities and upper extremities. 4-5 strength throughout. No focal weakness. GCS of 15. NIH is 0. Limitations: altered mental status, physical limitation Course Vital Signs 05/11/23 05/11/23 05/11/23 12:50 14:00 15:00 Temperature 98.7 F 98.7 F Pulse Rate 82 73 80 Respiratory 18 18 16 Rate Blood Pressure 142/78 140/81 135/75 O2 Sat by Pulse 98 95 98 Oximetry 05/11/23 05/11/23 16:57 17:12 Temperature 98.3 F Pulse Rate 90 92 Respiratory 18 18 Rate Blood Pressure 125/70 148/86 O2 Sat by Pulse 98 97 Oximetry Medical Decision Making - Medical Decision Making Was pt. sent in by a medical professional or institution (, [employer], [employer], urgent care, hospital, or prison...) When possible be specific @ -No Did you speak to anyone other than the patient for history (EMS, parent, family, police, friend...)? What history was obtained from this source @ -No Did you review nursing and triage notes (agree or disagree)? Why? @ -I reviewed and agree with nursing and triage notes Were old charts reviewed (outside hosp., previous admission, EMS record, old EKG, old radiological studies, urgent care reports/EKG's, prison records)? Report findings @ -Old charts reviewed Differential Diagnosis (chest pain, altered mental status, abdominal pain women, abdominal pain men, vaginal bleeding, weakness, fever, dyspnea, syncope, headache, dizziness, GI bleed, back pain, seizure, CVA, palpatations, mental he alth, musculoskeletal)? @ -Differential Weakness: Hypoglycemia, shock, sepsis, hyponatremia, anemia, infection, MO, ETOH, adverse medicine reaction, overdose, stroke, this is not meant to be an all-inclusive list. EKG interpreted by me (3pts min.). @ -As above X-rays interpreted by me (1pt min.). @ -Chest x-ray and pelvis x-ray negative for any obvious acute traumatic injury. CT interpreted by me (1pt min.). @ -CT brain, lumbar spine negative for any obvious acute traumatic injury. No acute intracranial process. U/S interpreted by me (1pt. min.). @ -None done What testing was considered but not performed or refused? (CT, X-rays, U/S, labs)? Why? @ -None What meds were considered but not given or refused? Why? @ -None Did you discuss the management of the patient with other professionals (professionals i.e. , [facility], [employer], lab, RT, psych nurse, social media specialist, registered pharmacist, teacher, communications officer, upper caser)? Give summary @ -Discussed with the admitting physician, Dr. Chandler who accepted the patient. Was smoking cessation discussed for >3mins.? @ -No Was critical care preformed (if so, how long)? @ -Yes, 35 minutes Were there social determinants of health that impacted care today? How? (Homelessness, low income, unemployed, alcoholism, drug addiction, transportation, low edu. Level, literacy, decrease access to med. care, longterm, rehab)? @ -No Was there de-escalation of care discussed even if they declined (Discuss DNR or withdrawal of care, Hospice)? DNR status @ -No What co-morbidities impacted this encounter? (DM, HTN, Smoking, COPD, CAD, Cancer, CVA, ARF, Chemo, Hep., AIDS, mental health diagnosis, sleep apnea, morbid obesity)? @ -None Was patient admitted / discharged? Hospital course, mention meds given and route, prescriptions, significant lab abnormalities, going to OR and other pertinent info. @ -Based on the patient's presentation and physical exam, I'm concerned for possible injury from the fall as well as alcohol or chills or dehydration. Patient will be given IV Ativan, IV fluids, thiamine.CIWA protocol ordered, as initial score is 13. We'll obtain generalized upper trace studies as well as CT imaging of the brain, lumbar spine, an x-ray of the chest and pelvis. Vital signs are within acceptable limits. Patient was in agreement this plan.No concern for cauda equina syndrome at this time. EKG showed no signs of acute ischemia. Patient's imaging unremarkable for any obvious reticulocyte injury. Patient's labs are remarkable for an uncontrolled diabetes with elevated blood sugar. Remainder of the labs within acceptable limits except for elevated LFTs in the setting of chronic alcohol use. Alcohol level undetectable. Viral swabs negative. I discussed results with the patient. Is somewhat improved at this time. Patient does appear to be improving in terms alcohol withdrawal we will admit for alcohol withdrawals as well as his lower extremity weakness. Patient was in agreement with this plan. I spoke with the admitting physician, Dr. Chandler who accepted the admission. Undiagnosed new problem with uncertain prognosis? @ -No Drug Therapy requiring intensive monitoring for toxicity (Heparin, Nitro, Insulin, Cardizem)? @ -No Were any procedures done? @ -No Diagnosis/symptom? @ -Alcohol withdrawals, lower extremity weakness Acute, or Chronic, or Acute on Chronic? @ -Acute Uncomplicated (without systemic symptoms) or Complicated (systemic symptoms)? @ -Complicated Side effects of treatment? @ -No Exacerbation, Progression, or Severe Exacerbation? @ -No Poses a threat to life or bodily function? How? (Chest pain, USA, MO, pneumonia, PE, COPD, DKA, ARF, appy, cholecystitis, CVA, Diverticulitis, Homicidal, Suicidal, threat to staff... and all critical care pts) @ -Yes - Lab Data Result diagrams: 05/11/23 13:16 05/11/23 13:16 Lab Results 05/11/23 05/11/23 05/11/23 Range/Units 13:16 13:16 13:16 WBC 6.4 (3.8-10.6) k/uL RBC 3.85 L (4.30-5.90) m/uL Hgb 13.1 (13.0-17.5) gm/dL Hct 38.0 L (39.0-53.0) % MCV 98.8 (80.0-100.0) fL MCH 34.0 (25.0-35.0) pg MCHC 34.4 (31.0-37.0) g/dL RDW 14.5 (11.5-15.5) % Plt Count 67 L (150-450) k/uL MPV 9.7 Neutrophils % 83 % Lymphocytes % 7 % Monocytes % 8 % Eosinophils % 2 % Basophils % 0 % Neutrophils # 5.3 (1.3-7.7) k/uL Lymphocytes # 0.4 L (1.0-4.8) k/uL Monocytes # 0.5 (0-1.0) k/uL Eosinophils # 0.1 (0-0.7) k/uL Basophils # 0.0 (0-0.2) k/uL Manual Slide Review Performed PT 10.3 (9.0-12.0) sec INR 1.0 (<1.2) APTT 22.0 (22.0-30.0) sec Sodium 136 L (137-145) mmol/L Potassium 3.7 (3.5-5.1) mmol/L Chloride 97 L (98-107) mmol/L Carbon Dioxide 21 L (22-30) mmol/L Anion Gap 18 mmol/L BUN 4 L (9-20) mg/dL Creatinine 0.83 (0.66-1.25) mg/dL Est GFR (CKD-EPI)AfAm >90 (>60 ml/min/1.73 sqM) Est GFR (CKD-EPI)NonAf >90 (>60 ml/min/1.73 sqM) Glucose 320 H (74-99) mg/dL Calcium 9.8 (8.4-10.2) mg/dL Total Bilirubin 1.5 H (0.2-1.3) mg/dL AST 694 H (17-59) U/L ALT 200 H (4-49) U/L Alkaline Phosphatase 66 (38-126) U/L Ammonia (<30) umol/L Total Protein 7.5 (6.3-8.2) g/dL Albumin 4.5 (3.5-5.0) g/dL Amylase 39 (30-110) U/L Lipase 161 (23-300) U/L Serum Alcohol <10 mg/dL Influenza Type A (PCR) (Not Detectd) Influenza Type B (PCR) (Not Detectd) RSV (PCR) (Not Detectd) SARS-CoV-2 (PCR) (Not Detectd) 05/11/23 05/11/23 Range/Units 13:16 13:19 WBC (3.8-10.6) k/uL RBC (4.30-5.90) m/uL Hgb (13.0-17.5) gm/dL Hct (39.0-53.0) % MCV (80.0-100.0) fL MCH (25.0-35.0) pg MCHC (31.0-37.0) g/dL RDW (11.5-15.5) % Plt Count (150-450) k/uL MPV Neutrophils % % Lymphocytes % % Monocytes % % Eosinophils % % Basophils % % Neutrophils # (1.3-7.7) k/uL Lymphocytes # (1.0-4.8) k/uL Monocytes # (0-1.0) k/uL Eosinophils # (0-0.7) k/uL Basophils # (0-0.2) k/uL Manual Slide Review PT (9.0-12.0) sec INR (<1.2) APTT (22.0-30.0) sec Sodium (137-145) mmol/L Potassium (3.5-5.1) mmol/L Chloride (98-107) mmol/L Carbon Dioxide (22-30) mmol/L Anion Gap mmol/L BUN (9-20) mg/dL Creatinine (0.66-1.25) mg/dL Est GFR (CKD-EPI)AfAm (>60 ml/min/1.73 sqM) Est GFR (CKD-EPI)NonAf (>60 ml/min/1.73 sqM) Glucose (74-99) mg/dL Calcium (8.4-10.2) mg/dL Total Bilirubin (0.2-1.3) mg/dL AST (17-59) U/L ALT (4-49) U/L Alkaline Phosphatase (38-126) U/L Ammonia 11 (<30) umol/L Total Protein (6.3-8.2) g/dL Albumin (3.5-5.0) g/dL Amylase (30-110) U/L Lipase (23-300) U/L Serum Alcohol mg/dL Influenza Type A (PCR) Not Detected (Not Detectd) Influenza Type B (PCR) Not Detected (Not Detectd) RSV (PCR) Not Detected (Not Detectd) SARS-CoV-2 (PCR) Not Detected (Not Detectd) - EKG Data -: EKG Interpreted by Me EKG Comments: 12-lead Electrocardiogram Interpretation Note EKG was reviewed and interpreted by myself. 12-lead ECG performed at 1318 is interpreted by me as revealing normal sinus rhythm at a rate of 77 beats per minute. Roosevelt is normal. NH interval is 146 ms, QRS durations 85 ms, QTc is 435 ms.. There were no ST or T wave abnormalities to suggest myocardial ischemia or injury. R wave progression across the precordium was satisfactory. By my interpretation this EKG is non-diagnostic for acute ischemia. Critical Care Time Critical Care Time: Yes Total Critical Care Time: 35 Disposition Clinical Impression: Alcohol withdrawal, Alcoholic liver disease, Weakness Disposition: ADMITTED IP TO THIS HOSP Condition: Stable Time of Disposition: 15:45
[2023-05-11 14:00] LABS: Platelet Count 67 k/uL (150-450)
--- NOTE | 2023-05-11 14:42 | XR ---
EXAMINATION TYPE: XR chest 2V DATE OF EXAM: 05/11/2023 1:57 PM COMPARISON: None TECHNIQUE: XR chest 2V Frontal and lateral views of the chest. CLINICAL INDICATION:Male, 58 years old with history of abdominal pain; FINDINGS: Lungs/Pleura: There is no evidence of pleural effusion, focal consolidation, or pneumothorax. Pulmonary vascularity: Unremarkable. Heart/mediastinum: Cardiomediastinal silhouette is unremarkable. Musculoskeletal: No acute osseous pathology. IMPRESSION: No acute cardiopulmonary disease/process.
--- NOTE | 2023-05-11 14:42 | CT ---
EXAMINATION TYPE: CT lumbar spine wo con CT DLP: 1341.6 mGycm, Automated exposure control for dose reduction was used. DATE OF EXAM: 05/11/2023 1:52 PM COMPARISON: 10/01/2022. CLINICAL INDICATION:Male, 58 years old with history of fall, weakness, Lower back pain, legs not work ing TECHNIQUE: Multiple axial images were obtained from the midportion of T11 through the sacroiliac damien nts. Soft tissue and bone windows in coronal and sagittal planes were obtained and reviewed. Contrast used: none. Oral contrast used: none. FINDINGS: Alignment: There are 5 lumbar type vertebral bodies within normal alignment. Bone: No evidence of fracture is identified. Multilevel disc degeneration changes with osteophyte fo rmation disc space narrowing and facet joint arthropathy. Discs: T12-L1: No spinal canal or neural foraminal stenosis is identified. L1-L2: No spinal canal or neural foraminal stenosis is identified. L2-L3: Facet joint arthropathy and disc bulging result with mild spinal canal stenosis and mild bilat eral neural foraminal stenosis. L3-L4: Facet joint arthropathy and disc bulging result with mild spinal canal stenosis and mild bilat eral neural foraminal stenosis. L4-L5: Facet joint arthropathy and disc bulging result with mild spinal canal stenosis and mild bilat eral neural foraminal stenosis. L5-S1: No spinal canal or neural foraminal stenosis is identified. Other: Diffuse low-attenuation to the liver parenchyma. IMPRESSION: 1. No evidence for spinal fracture. 2. No evidence for significant spinal canal and neural foraminal stenosis. 3. Hepatic steatosis.
--- NOTE | 2023-05-11 14:43 | XR ---
EXAMINATION TYPE: XR pelvis AP view DATE OF EXAM: 05/11/2023 1:57 PM INDICATION: Patient age:Male; 58 years old; Reason for study: fall, weakness; PHH. COMPARISON: None TECHNIQUE: The pelvis was examined in a single projection. FINDINGS: There is no evidence of fracture or dislocation. There is no soft tissue abnormality. Few pelvic phleboliths. Multilevel degenerative changes of the lower spine. IMPRESSION: No acute osseous pathology.
--- NOTE | 2023-05-11 14:43 | CT ---
EXAMINATION TYPE: CT brain wo con CT DLP: 1116.4 mGycm, Automated exposure control for dose reduction was used. DATE OF EXAM: 05/11/2023 1:52 PM COMPARISON: None. CLINICAL INDICATION:Male, 58 years old with history of fall, weakness, Fall and weakness in legs TECHNIQUE: Brain: Axial CT images of the brain were obtained with coronal and sagittal reformats created and rev iewed. Contrast used: None. Oral contrast used: None. FINDINGS: Brain: Extra-axial spaces: No abnormal extra-axial fluid collections. Ventricular system: Dilatation in proportion to cerebral atrophy. Cerebral parenchyma: Cerebral atrophy. No acute intraparenchymal hemorrhage or mass effect. The figueroa -white junction is well differentiated. Cerebellum: Unremarkable. Mass effect: No evidence of midline shift. Intracranial vasculature: Atherosclerotic calcifications of the intracranial vessels. Soft tissues: Normal. Calvarium/osseous structures: No depressed skull fracture. Paranasal sinuses and mastoid air cells: Mild scattered paranasal sinus disease. Visualized orbits: Orbital contents are intact. IMPRESSION: No acute intracranial process.
[2023-05-11] MEDS ORDERED: NALOXONE 0.4 MG/ML 1 ML VIAL IV PRN (15:59)
[2023-05-11] MEDS ORDERED: ONDANSETRON 4 MG/2 ML VIAL IVP PRN (15:59)
[2023-05-11] MEDS: SODIUM CHLORIDE 0.9% 1,000 ML IV SCH (16:54)
--- NOTE | 2023-05-11 19:46 | P.HPIM ---
History of Present Illness H&P Date: 05/11/23 Chief Complaint: Fall/weakness 58-year-old male with past medical history remarkable for diabetes, hypertension, chronic alcohol abuse who presents emergency Department after falling at home. Fell off the porch a few days ago. States he feels weak in both his his leg since the incident. States he cannot walk because of weakness. Has been unable to get up and move around. Has been having nausea, vomiting. Has been tremoring. States he drinks beer. Denies any history of alcohol withdrawals. Hasn't drank in a few days. Has no other acute complaints at this time. Denies chest pain, fevers, chills, cough, abdominal pain, nausea, vomiting. Endorses chronic low back pain. His no other acute complaints. Unknown if he lost consciousness. Presents for further evaluation. Currently covered in his own urine smells of alcohol and urine.Patient claims he has been stuck in bed and so weak he cannot move for the last few days since the fall. In the ED CT of the head, lumbar spine along with chest and pelvic x-ray was unremarkable EKG is negative for any acute ischemic changes Blood work reveals WBC of 6.4, hemoglobin of 13.1 and platelet count of 67, sodium 136, potassium 3.7, BUN/creatinine of 4/0.83 and blood glucose of 320 Review of Systems REVIEW OF SYSTEMS: CONSTITUTIONAL: No fever, no malaise, no fatigue. HEENT: No recent visual problems or hearing problems. Denied any sore throat. CARDIOVASCULAR: No chest pain, orthopnea, PND, no palpitations, no syncope. PULMONARY: No shortness of breath, no cough, no hemoptysis. GASTROINTESTINAL: No diarrhea, no nausea, no vomiting, no abdominal pain. NEUROLOGICAL: No headaches, no weakness, no numbness. HEMATOLOGICAL: Denies any bleeding or petechiae. GENITOURINARY: Denies any burning micturition, frequency, or urgency. MUSCULOSKELETAL/RHEUMATOLOGICAL: Denies any joint pain, swelling, or any muscle pain. ENDOCRINE: Denies any polyuria or polydipsia. The rest of the 14-point review of systems is negative. Past Medical History Past Medical History: Diabetes Mellitus, Hyperlipidemia, Hypertension Additional Past Medical History / Comment(s): lower back pain, hurt back at work History of Any Multi-Drug Resistant Organisms: None Reported Past Surgical History: Hernia Repair Past Anesthesia/Blood Transfusion Reactions: No Reported Reaction Past Psychological History: No Psychological Hx Reported Smoking Status: Never smoker Past Alcohol Use History: Occasional Additional Past Alcohol Use History / Comment(s): drink beer > 14 in a week Past Drug Use History: None Reported Additional Drug Use History / Comment(s): no cocaine in over a year - Past Family History Father Family Medical History: Cancer Medications and Allergies Home Medications Medication Instructions Recorded Confirmed Type Empagliflozin [Jardiance] 25 mg PO DAILY 02/21/23 05/11/23 History lisinopriL 2.5 mg PO DAILY 02/21/23 05/11/23 History metFORMIN HCL [Metformin HCl] 1,000 mg PO BID 02/21/23 05/11/23 History Rosuvastatin [Crestor] 10 mg PO HS 05/11/23 05/11/23 History Allergies Allergy/AdvReac Type Severity Reaction Status Date / Time No Known Allergies Allergy Verified 05/11/23 15:09 Physical Exam Vitals: Vital Signs Temp Pulse Pulse Resp BP BP Pulse Ox 05/11/23 18:13 99.2 F 69 16 125/73 95 05/11/23 17:12 98.3 F 92 18 148/86 97 05/11/23 16:57 90 18 125/70 98 05/11/23 15:00 98.7 F 80 16 135/75 98 05/11/23 14:00 73 18 140/81 95 05/11/23 12:50 98.7 F 82 18 142/78 98 Intake and Output 05/11/23 05/11/23 05/11/23 06:59 14:59 22:59 Other: # Voids 1 Weight 90.718 kg 90.718 kg General: Appears to be having alcohol withdrawals as patient has tongue fasciculations as well as generalized tremors. HEAD: Normal with no signs of head trauma. EYES: PERRLA, EOMI, conjunctiva normal, no discharge. Pupils are 3 mm equal bilaterally. ENT: Hearing grossly intact, normal oropharynx. Dry mucous membranes. RESPIRATORY: Clear breath sounds bilaterally. No wheezes, rales, or rhonchi. C/V: Regular rate and rhythm. S1 and S2 auscultated, no edema, peripheral pulses 2+ and intact throughout ABD: Abd is soft, nontender, nondistended EXT: Normal range of motion, no obvious deformity. Patient has left lower lumbar spine tenderness to palpation primarily in the paraspinal muscles which patient states is chronic. No midline spinal tenderness to palpation of the thoracic, cervical spine. No step-offs or deformities. Pelvis is stable. No tenderness to palpation of the extremities. Able to move all 4 extremity is without issue except for generalized weakness. SKIN: No rashes or lesions observed on exposed skin. NEURO: Alert and oriented 4. Weakness that is symmetrical in bilateral lower extremities and upper extremities. Results CBC & Chem 7: 05/11/23 13:16 05/11/23 13:16 Labs: Abnormal Lab Results - Last 24 Hours (Table) 05/11/23 05/11/23 Range/Units 13:16 13:16 RBC 3.85 L (4.30-5.90) m/uL Hct 38.0 L (39.0-53.0) % Plt Count 67 L (150-450) k/uL Lymphocytes # 0.4 L (1.0-4.8) k/uL Sodium 136 L (137-145) mmol/L Chloride 97 L (98-107) mmol/L Carbon Dioxide 21 L (22-30) mmol/L BUN 4 L (9-20) mg/dL Glucose 320 H (74-99) mg/dL Total Bilirubin 1.5 H (0.2-1.3) mg/dL AST 694 H (17-59) U/L ALT 200 H (4-49) U/L Thrombosis Risk Factor Assmnt - Choose All That Apply Any of the Below Risk Factors Present?: Yes Each Factor Represents 1 point: Age 41-60 years Other Risk Factors: No Other congenital or acquired thrombophilia - If yes, enter type in comment: No Thrombosis Risk Factor Assessment Total Risk Factor Score: 1 Thrombosis Risk Factor Assessment Level: Low Risk Assessment and Plan Assessment: 1. EtOH abuse/withdrawal - Patient had last drink yesterday; reports being increasingly tremulous with weakness both lower extremities - We will start patient on IV fluids in form of normal saline at a rate of 1 30 mL an hour - Thiamine 100 mg daily; Protonix 40 mg twice a day - CIWA protocol with Ativan 2. Elevated liver enzyme/transaminitis - Questionably related to alcohol abuse versus other etiology - We will order acute hepatitis profile; hepatobiliary and right upper quadrant ultrasound - We will monitor and trend liver enzymes; further recommendations pending results 3. Weakness/falls; likely related to chronic alcohol abuse; patient will be placed on thiamine replacement - We will order PT/OT 4. Hyperglycemia without acidosis; history of diabetes mellitus type 2; patient takes Jardiance 25 mg daily and metformin 1000 mg twice a day - We will continue home medications; monitor Accu-Cheks before meals and at bedtime with insulin sliding scale; recommended further adjustment in therapy pending results 5. Hypertension; lisinopril 2.5 mg daily 6. Hyperlipidemia; patient takes Crestor 10 mg by mouth daily at bedtime which will be placed on hold given markedly elevated liver enzymes DVT prophylaxis; SCDs/subcu heparin CODE STATUS; full code
[2023-05-11 20:24] LABS: Glucose,Whole Blood 241 mg/dL (70-110)
[2023-05-11] MEDS: INSULIN ASPART (NovoLOG) 100 UNIT/ML VIAL SQ SCH (20:53)
[2023-05-11] MEDS: metFORMIN 500 MG TAB PO SCH (20:53)
[2023-05-11 21:10] LABS: Appearance,Urine Clear (Clear); Bilirubin,Urine Negative (Negative); Blood,Urine Moderate (Negative); Color,Urine Yellow; Glucose,Urine (UA) 4+ (Negative); Ketones,Urine 1+ (Negative); Leukocyte Esterase,Urine Negative (Negative); Nitrite,Urine Negative (Negative); PH, Urine 5.5 (5.0-8.0); Protein,Urine 1+ (Negative); RBC,Urine <1 /hpf (0-5); Specific Gravity,Urine 1.018 (1.001-1.035); Squamous Epithelial Cell,Urine <1 /hpf (0-4); Urobilinogen,Urine <2.0 mg/dL (<2.0); WBC,Urine 1 /hpf (0-5)
[2023-05-12] MEDS: SODIUM CHLORIDE 0.9% 1,000 ML IV SCH ×4 (05:36→23:37)
[2023-05-12 07:02] LABS: Glucose,Whole Blood 210 mg/dL (70-110)
--- NOTE | 2023-05-12 07:43 | US ---
EXAMINATION TYPE: US abdomen limited DATE OF EXAM: 05/12/2023 COMPARISON: NONE CLINICAL INDICATION: Male, 58 years old with history of Elevated liver enzymes; elevated liver enzyme s. Hx of alcoholism TECHNIQUE: Multiple sonographic images of the right upper quadrant are obtained. FINDINGS: EXAM MEASUREMENTS: Liver Length: 16.3 cm Gallbladder Wall: 0.25 cm CBD: 0.25 cm Right Kidney: 11.5 x 6.5 x 4.5 cm AUTOMATION TECH NOTES: Pancreas: Limited due to bowel gas. Parts visualized appear wnl Liver: Heterogeneous and increased attenuation Gallbladder: wnl Evidence for sonographic Kidd's sign: No CBD: wnl Right Kidney: wnl Visualized portions of the pancreas are unremarkable however evaluation is limited due to overlying b owel gas. Diffuse increased attenuation the liver with heterogenous appearance. No focal lesion ident ified within these limitations. Noncirrhotic morphology. Gallbladder is unremarkable without evidence of wall thickening, pericholecystic fluid, or cholelithiasis. Per turbine subassembler, negative sonographic Kidd sign. Common bile duct within normal limits. Right kidney is unremarkable without evidence of hydronephrosis, solid mass or nephrolithiasis. IMPRESSION: 1. No acute process. 2. Hepatic steatosis.
[2023-05-12] MEDS: INSULIN ASPART (NovoLOG) 100 UNIT/ML VIAL SQ SCH ×4 (07:52→20:51)
[2023-05-12] MEDS: metFORMIN 500 MG TAB PO SCH ×2 (07:52→20:50)
[2023-05-12] MEDS: THIAMINE 100 MG TAB PO SCH (07:52)
[2023-05-12] MEDS: DAPAGLIFLOZIN PROPANEDIOL 10 MG TABLET PO SCH (07:52)
[2023-05-12 08:13] LABS: Basophils % (A) 0 %; Eosinophils % (A) 0 %; HCT 35.7 % (39.0-53.0); HGB 12.1 gm/dL (13.0-17.5); Lymphocytes # (A) 0.7 k/uL (1.0-4.8); Lymphocytes % (A) 14 %; MCH 33.9 pg (25.0-35.0); MCHC 33.9 g/dL (31.0-37.0); MCV 100.2 fL (80.0-100.0); Mean Platelet Volume 9.5; Monocytes # (A) 0.4 k/uL (0-1.0); Monocytes % (A) 8 %; Neutrophils # (A) 3.8 k/uL (1.3-7.7); Neutrophils % (A) 77 %; RBC 3.57 m/uL (4.30-5.90); RDW 14.2 % (11.5-15.5)
[2023-05-12 08:14] LABS: Platelet Count 44 k/uL (150-450)
[2023-05-12 09:40] LABS: ALT 156 U/L (4-49); AST 336 U/L (17-59); African American GFR (CKD) >90 (>60 ml/min/1.73 sqM); Albumin 3.1 g/dL (3.5-5.0); Albumin/Globulin Ratio 1.1; Alkaline Phosphatase 51 U/L (38-126); Anion Gap 6 mmol/L; Bilirubin,Unconjugated 0.8 mg/dL (0.0-1.1); Blood Urea Nitrogen 3 mg/dL (9-20); Calcium 8.6 mg/dL (8.4-10.2); Carbon Dioxide 27 mmol/L (22-30); Chloride 101 mmol/L (98-107); Globulin 2.7 g/dL; Glucose 183 mg/dL (74-99); Non-African American GFR(CKD) >90 (>60 ml/min/1.73 sqM); Potassium 3.1 mmol/L (3.5-5.1); Sodium 134 mmol/L (137-145); Total Bilirubin 1.2 mg/dL (0.2-1.3); Total Protein 5.8 g/dL (6.3-8.2)
[2023-05-12] MEDS ORDERED: Potassium Replacement Protocol 1 EACH MISC MISCELLANE PRN (11:11)
[2023-05-12 11:51] LABS: Glucose,Whole Blood 133 mg/dL (70-110)
[2023-05-12] MEDS: POTASSIUM CHLORIDE ER 20 MEQ TAB.ER PO SCH ×4 (12:22→15:37)
[2023-05-12 13:20] LABS: Hepatitis A Antibody IgM Nonreactive; Hepatitis B Core IgM Nonreactive; Hepatitis B Surface Antigen Nonreactive; Hepatitis C IgG Antibody Nonreactive
[2023-05-12] MEDS: LORazepam 2 MG/ML INJ IV PRN (16:28)
[2023-05-12 17:11] LABS: Glucose,Whole Blood 177 mg/dL (70-110)
[2023-05-12] MEDS ORDERED: POTASSIUM CHLORIDE ER 20 MEQ TAB.ER PO SCH (20:00)
[2023-05-12 20:44] LABS: Glucose,Whole Blood 163 mg/dL (70-110)
[2023-05-13] MEDS: SODIUM CHLORIDE 0.9% 1,000 ML IV SCH ×3 (03:43→23:29)
[2023-05-13] MEDS: LORazepam 2 MG/ML INJ IV PRN (03:43)
[2023-05-13] MEDS ORDERED: Potassium Replacement Protocol 1 EACH MISC MISCELLANE PRN (06:52)
[2023-05-13 07:58] LABS: Glucose,Whole Blood 158 mg/dL (70-110)
[2023-05-13] MEDS: INSULIN ASPART (NovoLOG) 100 UNIT/ML VIAL SQ SCH ×4 (08:18→21:09)
[2023-05-13] MEDS: POTASSIUM CHLORIDE ER 20 MEQ TAB.ER PO SCH ×2 (08:19→09:05)
[2023-05-13] MEDS: DAPAGLIFLOZIN PROPANEDIOL 10 MG TABLET PO SCH (08:19)
[2023-05-13] MEDS: THIAMINE 100 MG TAB PO SCH (08:19)
[2023-05-13] MEDS: metFORMIN 500 MG TAB PO SCH ×2 (08:19→21:15)
[2023-05-13 12:11] LABS: Glucose,Whole Blood 160 mg/dL (70-110)
[2023-05-13 17:17] LABS: Glucose,Whole Blood 166 mg/dL (70-110)
[2023-05-13 20:41] LABS: Glucose,Whole Blood 148 mg/dL (70-110)
--- NOTE | 2023-05-13 20:45 | PN ---
PROGRESS NOTE DATE OF SERVICE: 05/13/2023 SUBJECTIVE: This is a 58-year-old gentleman who was admitted with an EtOH abuse withdrawal, also had elevated liver enzymes. The patient also complains of weakness. The patient has also hyperglycemia, the patient is closely monitored. No chest pain, no palpitations. No fever. OBJECTIVE: VITAL SIGNS: Pulse is 73, blood pressure n, respirations 14. CHEST: Clear, few scattered rhonchi. ABDOMEN: Soft. NERVOUS SYSTEM: No focal deficits. LABORATORY DATA: Hemoglobin 12. The rest of the labs noted. ASSESSMENT: 1. Acute alcohol abuse and withdrawal and early delirium tremens. 2. Alcoholic hepatitis. 3. Generalized weakness. 4. Multiple medical issues. RECOMMENDATIONS: Recommended to continue current management, continue symptomatic treatment, and repeat labs in the morning. PT OT evaluation, possible ECF rehab. Guarded prognosis. Further recommendations to follow. See orders for the details. MMODL / IJN: [id number] / MTDD
[2023-05-14] MEDS: SODIUM CHLORIDE 0.9% 1,000 ML IV SCH ×3 (03:17→20:49)
[2023-05-14 07:11] LABS: Glucose,Whole Blood 160 mg/dL (70-110)
[2023-05-14] MEDS: metFORMIN 500 MG TAB PO SCH ×2 (08:59→20:49)
[2023-05-14] MEDS: DAPAGLIFLOZIN PROPANEDIOL 10 MG TABLET PO SCH (08:59)
[2023-05-14] MEDS: INSULIN ASPART (NovoLOG) 100 UNIT/ML VIAL SQ SCH ×4 (09:00→20:49)
[2023-05-14] MEDS: THIAMINE 100 MG TAB PO SCH (09:00)
[2023-05-14 11:27] LABS: ALT 109 U/L (10-49); AST 148 U/L (14-35); Albumin 3.4 d/dL (3.8-4.9); Albumin/Globulin Ratio 1.62 Ratio (1.60-3.17); Alkaline Phosphatase 41 U/L (41-126); BUN/Creat Ratio <5.00 Ratio (12.00-20.00); Blood Urea Nitrogen <3.5 mg/dL (9.0-27.0); Calcium 8.9 mg/dL (8.7-10.3); Carbon Dioxide 25.3 mmol/L (21.6-31.8); Chloride 105 mmol/L (96-109); Globulin 2.1 d/dL (1.6-3.3); Glucose 151 mg/dL (70-110); Potassium 3.9 mmol/L (3.5-5.5); Sodium 140 mmol/L (135-145); Total Bilirubin 0.6 mg/dL (0.3-1.2); Total Protein 5.5 d/dL (6.2-8.2)
[2023-05-14 12:06] LABS: Glucose,Whole Blood 155 mg/dL (70-110)
[2023-05-14 12:36] LABS: Basophils # (A) 0.02 X 10*3/uL (0.00-0.10); Basophils % (A) 0.5 %; Eosinophils # (A) 0.03 X 10*3/uL (0.04-0.35); Eosinophils % (A) 0.7 %; HCT 34.2 % (39.6-50.0); HGB 12.2 d/dL (13.0-17.0); Immature Platelet Fraction 6.7 % (1.1-6.1); Lymphocytes # (A) 0.89 X 10*3/uL (0.90-5.00); Lymphocytes % (A) 21.3 %; MCH 34.2 pg (27.0-32.0); MCHC 35.7 d/dL (32.0-37.0); MCV 95.8 FL (80.0-97.0); Monocytes # (A) 0.73 X 10*3/uL (0.20-1.00); Monocytes % (A) 17.5 %; NRBC Per 100 WBC 0 X 10*3/uL (0.00-0.01); Neutrophils # (A) 2.49 X 10*3/uL (1.80-7.70); Neutrophils % (A) 59.5 %; Platelet Count 68 X 10*3/uL (140-440); RBC 3.57 X 10*6/uL (4.40-5.60); RBC Morphology Normal (Normal); RDW 13.8 % (11.5-14.5); WBC 4.18 X 10*3/uL (4.50-10.00)
--- NOTE | 2023-05-14 18:04 | PN ---
PROGRESS NOTE DATE OF SERVICE: 05/14/2023 SUBJECTIVE: This is a 58-year-old gentleman, admitted with EtOH, complaining of weakness. The patient also had features of delirium tremens. Abdominal ultrasound showed no acute process. OBJECTIVE: VITAL SIGNS: Pulse is 64, blood pressure 141/89, respirations 18. CHEST: Clear to auscultation. CARDIOVASCULAR: S1 and S2. ABDOMEN: Soft. NERVOUS SYSTEM: Tremors. LABORATORY DATA: Reviewed. ASSESSMENT: 1. Acute alcohol abuse and withdrawal and early delirium tremens. 2. Acute alcoholic hepatitis. 3. Generalized weakness. 4. Multiple medical issues. RECOMMENDATIONS: Recommend to continue current medications. Continue symptomatic treatment. Otherwise, repeat labs. Increase ambulation. Continue with CIWA protocol. Guarded prognosis. Further recommendations to follow. MMODL / IJN: [id number] /
[2023-05-14 18:05] LABS: Glucose,Whole Blood 131 mg/dL (70-110)
[2023-05-14 20:03] LABS: Glucose,Whole Blood 166 mg/dL (70-110)
--- NOTE | 2023-05-14 22:10 | P.PN ---
Subjective Progress Note Date: 05/12/23 58-year-old male with past medical history remarkable for diabetes, hypertension, chronic alcohol abuse who presents emergency Department after falling at home. Fell off the porch a few days ago. States he feels weak in both his his leg since the incident. States he cannot walk because of weakness. Has been unable to get up and move around. Has been having nausea, vomiting. Has been tremoring. States he drinks beer. Denies any history of alcohol withdrawals. Hasn't drank in a few days. Has no other acute complaints at this time. Denies chest pain, fevers, chills, cough, abdominal pain, nausea, vomiting. Endorses chronic low back pain. His no other acute complaints. Unknown if he lost consciousness. Presents for further evaluation. Currently covered in his own urine smells of alcohol and urine.Patient claims he has been stuck in bed and so weak he cannot move for the last few days since the fall. In the ED CT of the head, lumbar spine along with chest and pelvic x-ray was unremarkable EKG is negative for any acute ischemic changes Blood work reveals WBC of 6.4, hemoglobin of 13.1 and platelet count of 67, sodium 136, potassium 3.7, BUN/creatinine of 4/0.83 and blood glucose of 320 Objective - Vital Signs Vital signs: Vital Signs Temp 99.3 F 05/12/23 13:50 Pulse 69 05/12/23 13:50 Resp 18 05/12/23 13:50 BP 149/79 05/12/23 13:50 Pulse Ox 97 05/12/23 13:50 FiO2 Intake & Output 05/11/23 05/12/23 05/12/23 18:59 06:59 18:59 Output Total 350 150 Balance -350 -150 Weight 90.718 kg Output: Urine 350 150 Other: # Voids 1 1 # Bowel Movements 1 1 - Exam General: Appears to be having alcohol withdrawals as patient has tongue fasciculations as well as generalized tremors. HEAD: Normal with no signs of head trauma. EYES: PERRLA, EOMI, conjunctiva normal, no discharge. Pupils are 3 mm equal bilaterally. ENT: Hearing grossly intact, normal oropharynx. Dry mucous membranes. RESPIRATORY: Clear breath sounds bilaterally. No wheezes, rales, or rhonchi. C/V: Regular rate and rhythm. S1 and S2 auscultated, no edema, peripheral pulses 2+ and intact throughout ABD: Abd is soft, nontender, nondistended EXT: Normal range of motion, no obvious deformity. Patient has left lower lumbar spine tenderness to palpation primarily in the paraspinal muscles which patient states is chronic. No midline spinal tenderness to palpation of the thoracic, cervical spine. No step-offs or deformities. Pelvis is stable. No tenderness to palpation of the extremities. Able to move all 4 extremity is without issue except for generalized weakness. SKIN: No rashes or lesions observed on exposed skin. NEURO: Alert and oriented 4. Weakness that is symmetrical in bilateral lower extremities and upper extremities. - Labs CBC & Chem 7: 05/14/23 06:19 05/14/23 06:19 Labs: Abnormal Lab Results - Last 24 Hours (Table) 05/11/23 05/11/23 05/12/23 Range/Units 20:22 20:59 06:52 RBC 3.57 L (4.30-5.90) m/uL Hgb 12.1 L (13.0-17.5) gm/dL Hct 35.7 L (39.0-53.0) % MCV 100.2 H (80.0-100.0) fL Plt Count 44 L (150-450) k/uL Lymphocytes # 0.7 L (1.0-4.8) k/uL Sodium (137-145) mmol/L Potassium (3.5-5.1) mmol/L BUN (9-20) mg/dL Glucose (74-99) mg/dL POC Glucose (mg/dL) 241 H (70-110) mg/dL AST (17-59) U/L ALT (4-49) U/L Total Protein (6.3-8.2) g/dL Albumin (3.5-5.0) g/dL Urine Protein 1+ H (Negative) Urine Glucose (UA) 4+ H (Negative) Urine Ketones 1+ H (Negative) Urine Blood Moderate H (Negative) 05/12/23 05/12/23 05/12/23 Range/Units 06:52 07:01 11:50 RBC (4.30-5.90) m/uL Hgb (13.0-17.5) gm/dL Hct (39.0-53.0) % MCV (80.0-100.0) fL Plt Count (150-450) k/uL Lymphocytes # (1.0-4.8) k/uL Sodium 134 L (137-145) mmol/L Potassium 3.1 L (3.5-5.1) mmol/L BUN 3 L (9-20) mg/dL Glucose 183 H (74-99) mg/dL POC Glucose (mg/dL) 210 H 133 H (70-110) mg/dL AST 336 H (17-59) U/L ALT 156 H (4-49) U/L Total Protein 5.8 L (6.3-8.2) g/dL Albumin 3.1 L (3.5-5.0) g/dL Urine Protein (Negative) Urine Glucose (UA) (Negative) Urine Ketones (Negative) Urine Blood (Negative) Assessment and Plan Assessment: 1. EtOH abuse/withdrawal - Patient had last drink yesterday; reports being increasingly tremulous with weakness both lower extremities - We will start patient on IV fluids in form of normal saline at a rate of 1 30 mL an hour - Thiamine 100 mg daily; Protonix 40 mg twice a day - CIWA protocol with Ativan 2. Elevated liver enzyme/transaminitis - Questionably related to alcohol abuse versus other etiology - We will order acute hepatitis profile; hepatobiliary and right upper quadrant ultrasound - We will monitor and trend liver enzymes; further recommendations pending results 3. Weakness/falls; likely related to chronic alcohol abuse; patient will be placed on thiamine replacement - We will order PT/OT 4. Hyperglycemia without acidosis; history of diabetes mellitus type 2; patient takes Jardiance 25 mg daily and metformin 1000 mg twice a day - We will continue home medications; monitor Accu-Cheks before meals and at bedtime with insulin sliding scale; recommended further adjustment in therapy pending results 5. Hypertension; lisinopril 2.5 mg daily 6. Hyperlipidemia; patient takes Crestor 10 mg by mouth daily at bedtime which will be placed on hold given markedly elevated liver enzymes DVT prophylaxis; SCDs/subcu heparin CODE STATUS; full code
[2023-05-15] MEDS: SODIUM CHLORIDE 0.9% 1,000 ML IV SCH ×2 (06:53→12:09)
[2023-05-15 07:10] LABS: Glucose,Whole Blood 137 mg/dL (70-110)
[2023-05-15] MEDS: INSULIN ASPART (NovoLOG) 100 UNIT/ML VIAL SQ SCH ×2 (07:19→12:09)
[2023-05-15] MEDS: THIAMINE 100 MG TAB PO SCH (08:42)
[2023-05-15] MEDS: DAPAGLIFLOZIN PROPANEDIOL 10 MG TABLET PO SCH (08:42)
[2023-05-15] MEDS: metFORMIN 500 MG TAB PO SCH (08:42)
[2023-05-15 11:47] LABS: Glucose,Whole Blood 142 mg/dL (70-110)
[2023-05-15 12:04] LABS: ALT 97 U/L (10-49); AST 150 U/L (14-35); Albumin 3.5 d/dL (3.8-4.9); Albumin/Globulin Ratio 1.52 Ratio (1.60-3.17); Alkaline Phosphatase 40 U/L (41-126); BUN/Creat Ratio <5.00 Ratio (12.00-20.00); Blood Urea Nitrogen <3.5 mg/dL (9.0-27.0); Calcium 8.7 mg/dL (8.7-10.3); Carbon Dioxide 24.5 mmol/L (21.6-31.8); Chloride 103 mmol/L (96-109); Globulin 2.3 d/dL (1.6-3.3); Glucose 142 mg/dL (70-110); Potassium 4.5 mmol/L (3.5-5.5); Sodium 138 mmol/L (135-145); Total Bilirubin 0.5 mg/dL (0.3-1.2); Total Protein 5.8 d/dL (6.2-8.2)
--- NOTE | 2023-05-15 12:53 | P.DS ---
Providers Date of admission: 05/11/23 16:02 Expected date of discharge: 05/15/23 Attending physician: Celine Chandler MD Primary care physician: Reinaldo Hubbard Hospital Course: Final diagnosis Acute alcohol abuse with withdrawal and earlier delirium tremens Acute alcoholic hepatitis Generalized weakness with gait dysfunction Diabetes mellitus Hyperlipidemia Hypertension Obesity with a BMI of 30.4 Lower back pain, chronic GI prophylaxis DVT prophylaxis Full code Discharge disposition Patient is being discharged in a stable condition with guarded prognosis to [facility]. Patient will follow-up with Dr. Hubbard in the outpatient setting upon discharge. Total time taken is greater than 35 minutes. Hospital course This is a 58-year-old male who was recently admitted with generalized weakness along with acute alcohol withdrawal and early tremens being closely monitored maintained on CIWA protocol. Patient with generalized weakness and inability to ambulate was seen and evaluated by physical therapy recommending ECF and patient is agreeable. Patient has been accepted at [facility] and will be discharged today. Patient has been counseled on complete alcohol cessation. Currently no reports of chest pain, shortness of breath, or palpitations. Patient is afebrile. No reports of nausea or vomiting and patient is tolerating diet. Patient will be going to [facility] today. Physical exam: Gen: This is a [id number] male who is awake, alert and oriented 3, well- developed, well-nourished, obese HEENT: Head is atraumatic, normocephalic. Pupils equal, round. Sclerae is anicteric. NECK: Supple. No JVD. No lymphadenopathy. No thyromegaly. LUNGS: Clear to auscultation. No wheezes or rhonchi. No intercostal retractions. HEART: Regular rate and rhythm. No murmur. ABDOMEN: Soft. Bowel sounds are present. No masses. No tenderness. EXTREMITIES: No pedal edema. No calf tenderness. NEUROLOGICAL: Patient is awake, alert and oriented x3. Cranial nerves 2 through 12 are grossly intact. Diffusely weak Please refer to medication reconciliation sheet for a list of medications. The impression and plan of care has been dictated by Irma Marrero, Nurse Practitioner as directed. Dr. Alton MD I have performed a history and examination and MDM of this patient, discussed the same with the dictator, and agree with the dictator's assessment and plan as written ,documented as a scribe. Based on total visit time, I have performed more than 50% of the visit. Patient Condition at Discharge: Stable Plan - Discharge Summary Discharge Rx Participant: No New Discharge Prescriptions: New Thiamine [Vitamin B-1] 100 mg PO DAILY tab Continue Empagliflozin [Jardiance] 25 mg PO DAILY Rosuvastatin [Crestor] 10 mg PO HS lisinopriL 2.5 mg PO DAILY metFORMIN HCL 1,000 mg PO BID Discharge Medication List Empagliflozin [Jardiance] 25 mg PO DAILY 02/21/23 [History] lisinopriL 2.5 mg PO DAILY 02/21/23 [History] metFORMIN HCL 1,000 mg PO BID 02/21/23 [History] Rosuvastatin [Crestor] 10 mg PO HS 05/11/23 [History] Thiamine [Vitamin B-1] 100 mg PO DAILY tab 05/15/23 [Rx] Follow up Appointment(s)/Referral(s): Reinaldo Hubbard [Primary Care Provider] - 1-2 days Discharge/Stand Alone Forms: AA Meetings [facility], Outpatient [facility]ing
[2023-05-15 13:03] LABS: Basophils # (A) 0.04 X 10*3/uL (0.00-0.10); Basophils % (A) 0.9 %; Eosinophils # (A) 0.03 X 10*3/uL (0.04-0.35); Eosinophils % (A) 0.6 %; HCT 35.5 % (39.6-50.0); HGB 12.2 d/dL (13.0-17.0); Lymphocytes # (A) 0.89 X 10*3/uL (0.90-5.00); Lymphocytes % (A) 19.2 %; MCH 33.4 pg (27.0-32.0); MCHC 34.4 d/dL (32.0-37.0); MCV 97.3 FL (80.0-97.0); Mean Platelet Volume 10.5 FL (9.5-12.2); Monocytes # (A) 1.02 X 10*3/uL (0.20-1.00); NRBC Per 100 WBC 0 X 10*3/uL (0.00-0.01); Neutrophils # (A) 2.62 X 10*3/uL (1.80-7.70); Neutrophils % (A) 56.7 %; Platelet Count 95 X 10*3/uL (140-440); RBC 3.65 X 10*6/uL (4.40-5.60); Target Cells 2+; WBC 4.63 X 10*3/uL (4.50-10.00)
[2023-05-15 14:21] VITALS: BP 126/79; PULSE 65; RESP 17; TEMP 98.9
== END 2023-05-15 15:13 | DRG 775 ==
LOC: EC 12:45 → 5NMEDONC 16:02
PROVIDERS: ADMIT Internal Medicine; ATTEND Internal Medicine
DX: F10.131 Alcohol abuse with withdrawal delirium (principal); Z28.311 Partially vaccinated for COVID-19; Z20.822 Contact with and (suspected) exposure to COVID-19; Z28.21 Immunization not carried out because of patient refusal; E66.9 Obesity, unspecified; Z68.30 Body mass index [BMI] 30.0-30.9, adult; Z71.41 Alcohol abuse counseling and surveillance of alcoholic; K70.10 Alcoholic hepatitis without ascites; G89.29 Other chronic pain; M54.50 Low back pain, unspecified; E78.5 Hyperlipidemia, unspecified; E11.65 Type 2 diabetes mellitus with hyperglycemia; Z79.84 Long term (current) use of oral hypoglycemic drugs; E87.20 Acidosis, unspecified; Z91.81 History of falling; I10 Essential (primary) hypertension; Z79.899 Other long term (current) drug therapy
CPT/HCPCS: 36415; 70450; 71046; 72131; 72170; 76705; 80048; 80053; 80074; 80076; 80320; 81001; 82140; 82150; 83690; 83735; 84132; 85025; 85610; 85730; 87636; 93005; 96361; 96372; 96374; 96375; 96376; 99291

== ENCOUNTER 2023-08-16 01:47 | Observation (INO) | payer OTHER ==
[2023-08-16 01:56] LABS: Glucose,Whole Blood 258 mg/dL (70-110)
[2023-08-16] MEDS ORDERED: SODIUM CHLORIDE 0.9% 1,000 ML IV ONE (02:38)
--- NOTE | 2023-08-16 04:31 | ED ---
General Adult HPI - General Chief complaint: Alcohol Stated complaint: Diabetic, bleeding feet Time Seen by Provider: 08/16/23 02:24 Source: patient, RN notes reviewed Mode of arrival: wheelchair Limitations: no limitations - History of Present Illness Initial comments: 58-year-old -Australian male past medical history significant for alcohol abuse presents the emergency department with a chief complaint of alcohol intoxication. He reports that he is a daily drinker. He reports that he drinks 6-824 ounce. Daily. Patient offers no specific complaints. Denies any injury or trauma or recent falls. Denies dizziness, lightheadedness, headache, nausea or vomiting, abdominal pain. - Related Data Home Medications Medication Instructions Recorded Confirmed Empagliflozin [Jardiance] 25 mg PO DAILY 02/21/23 05/11/23 lisinopriL 2.5 mg PO DAILY 02/21/23 05/11/23 metFORMIN HCL 1,000 mg PO BID 02/21/23 05/11/23 Rosuvastatin [Crestor] 10 mg PO HS 05/11/23 05/11/23 Previous Rx's Medication Instructions Recorded Thiamine [Vitamin B-1] 100 mg PO DAILY tab 05/15/23 Allergies Allergy/AdvReac Type Severity Reaction Status Date / Time No Known Allergies Allergy Verified 05/11/23 15:09 Review of Systems ROS Statement: Those systems with pertinent positive or pertinent negative responses have been documented in the HPI. ROS Other: All systems not noted in ROS Statement are negative. Past Medical History Past Medical History: Diabetes Mellitus, Hyperlipidemia, Hypertension Additional Past Medical History / Comment(s): lower back pain, hurt back at work History of Any Multi-Drug Resistant Organisms: None Reported Past Surgical History: Hernia Repair Past Anesthesia/Blood Transfusion Reactions: No Reported Reaction Past Psychological History: No Psychological Hx Reported Smoking Status: Never smoker Past Alcohol Use History: Occasional Past Drug Use History: None Reported - Past Family History Father Family Medical History: Cancer General Exam - General Exam Comments Initial Comments: General: Alert, in no acute distress, appears clinically intoxicated Head: atraumatic normocephalic. Eyes PERRL, EOMI intact, mucous membranes moist Respiratory: Lungs clear to auscultation bilaterally Cardiovascular: Heart rate regular rate and rhythm Abdominal: Soft without guarding or rebound Extremities: Normal inspection with full range of motion and normal capillary refill Neuroogic: alert and oriented 3, CN II-XII intact, able to ambulate with steady gait Skin: warm dry and intact with normal color Limitations: no limitations Course Vital Signs 08/16/23 01:50 Temperature 97.7 F Pulse Rate 80 Respiratory 18 Rate Blood Pressure 105/62 O2 Sat by Pulse 98 Oximetry - Reevaluation(s) Reevaluation #1: 08/16/23 04:[address] Cruz, ED attending who assumes care of the patient pending EtOH value. Medical Decision Making - Medical Decision Making Was pt. sent in by a medical professional or institution (, PA, BIOFUELS PLANT OPERATIONS ENGINEER, urgent care, hospital, or [facility]...) When possible be specific @ -[No] Did you speak to anyone other than the patient for history (EMS, parent, family, police, friend...)? What history was obtained from this source @ -[No] Did you review nursing and triage notes (agree or disagree)? Why? @ -[I reviewed and agree with nursing and triage notes] Were old charts reviewed (outside hosp., previous admission, EMS record, old EKG, old radiological studies, urgent care reports/EKG's, [facility] records)? Report findings @ -[No old charts were reviewed] Differential Diagnosis (chest pain, altered mental status, abdominal pain women, abdominal pain men, vaginal bleeding, weakness, fever, dyspnea, syncope, headache, dizziness, GI bleed, back pain, seizure, CVA, palpatations, mental health, musculoskeletal)? @ -[not applicable] EKG interpreted by me (3pts min.). @ -[As above] X-rays interpreted by me (1pt min.). @ -[None done] CT interpreted by me (1pt min.). @ -[None done] U/S interpreted by me (1pt. min.). @ -[None done] What testing was considered but not performed or refused? (CT, X-rays, U/S, labs)? Why? @ -[None] What meds were considered but not given or refused? Why? @ -[None] Did you discuss the management of the patient with other professionals (professionals i.e. , PA, B[employer] OPERATIONS ENGINEER, lab, RT, psych nurse, social insurance adviser, system configuration specialist, teacher, security flex utility officer, pillowcase sewer)? Give summary @ -[No] Was smoking cessation discussed for >3mins.? @ -[No] Was critical care preformed (if so, how long)? @ -[No] Were there social determinants of health that impacted care today? How? (Homelessness, low income, unemployed, alcoholism, drug addiction, transportation, low edu. Level, literacy, decrease access to med. care, [facility], rehab)? @ -[No] Was there de-escalation of care discussed even if they declined (Discuss DNR or withdrawal of care, Hospice)? DNR status @ -[No] What co-morbidities impacted this encounter? (DM, HTN, Smoking, COPD, CAD, Cancer, CVA, ARF, Chemo, Hep., AIDS, mental health diagnosis, sleep apnea, morb id obesity)? @ -[None] Was patient admitted / discharged? Hospital course, mention meds given and route, prescriptions, significant lab abnormalities, going to OR and other pertinent info. @ Disposition pending. A 58 year-old -Australian male presents the emergency department with alcohol intoxication. Patient is clinically intoxicated. Vital signs are stable. Patient will be signed out to Dr. Haas pending EtOH and laboratory studies. - Lab Data Lab Results 08/16/23 Range/Units 01:53 POC Glucose (mg/dL) 258 H (70-110) mg/dL POC Glu Asset Analyst ID Charli Zamora Disposition Referrals: Reinaldo Hubbard [Primary Care Provider] - 1-2 days
[2023-08-16 05:02] LABS: ALT 48 U/L (4-49); AST 95 U/L (17-59); African American GFR (CKD) >90 (>60 ml/min/1.73 sqM); Albumin 4.5 g/dL (3.5-5.0); Alkaline Phosphatase 59 U/L (38-126); Anion Gap 22 mmol/L; Blood Urea Nitrogen 5 mg/dL (9-20); Calcium 9.2 mg/dL (8.4-10.2); Carbon Dioxide 19 mmol/L (22-30); Chloride 102 mmol/L (98-107); Glucose 186 mg/dL (74-99); Non-African American GFR(CKD) >90 (>60 ml/min/1.73 sqM); Potassium 4.1 mmol/L (3.5-5.1); Sodium 143 mmol/L (137-145); Total Bilirubin 0.5 mg/dL (0.2-1.3); Total Protein 7.3 g/dL (6.3-8.2)
[2023-08-16 05:40] LABS: Amphetamine Screen,Urine Not Detected (NotDetected); Barbiturate Screen,Urine Not Detected (NotDetected); Benzodiazepines Screen,Urine Not Detected (NotDetected); Cocaine Screen,Urine Not Detected (NotDetected); Methadone Screen, Urine Not Detected (NotDetected); Opiate Screen,Urine Not Detected (NotDetected); Oxycodone Screen, Urine Not Detected (NotDetected); Phencyclidine Screen,Urine Not Detected (NotDetected); Tricyclic Antidepressant,Urine Not Detected (NotDetected); Urn Cannabinoid Scrn Not Detected (NotDetected)
[2023-08-16 05:44] LABS: Alcohol 352 mg/dL
[2023-08-16 06:28] LABS: Glucose,Whole Blood 171 mg/dL (70-110)
[2023-08-16] MEDS ORDERED: NALOXONE 0.4 MG/ML 1 ML VIAL IV PRN (06:40)
[2023-08-16] MEDS ORDERED: ACETAMINOPHEN TAB 325 MG TAB PO PRN (06:51)
[2023-08-16] MEDS ORDERED: THIAMINE 100 MG/ML 2 ML VIAL IM STA (06:53)
[2023-08-16] MEDS ORDERED: chlordiazePOXIDE 25 MG CAP PO PRN (06:53)
[2023-08-16] MEDS ORDERED: LORazepam 2 MG/ML INJ IV PRN ×3 (06:53)
[2023-08-16 07:25] LABS: Anisocytosis Slight; Basophils % (A) 1 %; Eosinophils % (A) 0 %; HCT 36.4 % (39.0-53.0); HGB 12.2 gm/dL (13.0-17.5); Lymphocytes # (A) 1.2 k/uL (1.0-4.8); Lymphocytes % (A) 27 %; MCH 33.7 pg (25.0-35.0); MCHC 33.4 g/dL (31.0-37.0); MCV 100.8 fL (80.0-100.0); Macrocytosis Slight; Mean Platelet Volume 8.7; Monocytes # (A) 0.4 k/uL (0-1.0); Monocytes % (A) 9 %; Neutrophils # (A) 2.6 k/uL (1.3-7.7); Neutrophils % (A) 59 %; RBC 3.62 m/uL (4.30-5.90); RDW 17.3 % (11.5-15.5); WBC 4.4 k/uL (3.8-10.6)
[2023-08-16 07:43] LABS: Platelet Count 81 k/uL (150-450)
[2023-08-16 07:45] LABS: Target Cells Present
[2023-08-16] MEDS: FAMOTIDINE 20 MG TAB PO SCH ×2 (08:15→20:11)
[2023-08-16] MEDS: SODIUM CHLORIDE 0.9% 1,000 ML IV SCH ×2 (08:16→20:09)
--- NOTE | 2023-08-16 10:35 | P.HPIM ---
History of Present Illness This is a pleasant 58 years old -German male with multiple medical problems. Was brought because of alcohol intoxication. I saw the patient in the emergency room he was fully awake and oriented, he was calm. He denies any specific symptoms. He knows he is in the hospital and he follows commands. The last thing he remembers he was at his home drinking alcohol and he doesn't know why he came to the hospital. He denies chest pain dyspnea. No urinary or GI complaints or change in his habits. No fever. No headache dizziness weakness or numbness. No blurred vision or slurred speech. Patient denies smoking or illicit drugs he states he drinks beer of 24 hours about 4-5 of them. He denies liquor or wine. Patient denies depression or suicidal or homicidal ideation. He denies hallucination or delusions to me. Hemodynamically stable Hemoglobin 12.2, platelet count is 80 Rest of the BMP, liver enzymes and bilirubin and urine drug screen are reviewed and they are unremarkable Level was elevated 352. Review of Systems Review of systems CONSTITUTIONAL: No fever, no malaise, no fatigue. HEENT: No recent visual problems or hearing problems. Denied any sore throat. CARDIOVASCULAR: No orthopnea, PND, no palpitations, no syncope. PULMONARY: No shortness of breath, no cough, no hemoptysis. GASTROINTESTINAL: No diarrhea, no nausea, no vomiting, no abdominal pain. Norm oactive bowel sounds. NEUROLOGICAL: No headaches, no weakness, no numbness. HEMATOLOGICAL: Denies any bleeding or petechiae. GENITOURINARY: Denies any burning micturition, frequency, or urgency. MUSCULOSKELETAL/RHEUMATOLOGICAL: Denies any joint pain, swelling, or any muscle pain. ENDOCRINE: Denies any polyuria or polydipsia. Past Medical History Past Medical History: Diabetes Mellitus, Hyperlipidemia, Hypertension Additional Past Medical History / Comment(s): lower back pain, hurt back at work History of Any Multi-Drug Resistant Organisms: None Reported Past Surgical History: Hernia Repair Past Anesthesia/Blood Transfusion Reactions: No Reported Reaction Past Psychological History: No Psychological Hx Reported Smoking Status: Never smoker Past Alcohol Use History: Occasional Past Drug Use History: None Reported - Past Family History Father Family Medical History: Cancer Medications and Allergies Home Medications Medication Instructions Recorded Confirmed Type Empagliflozin [Jardiance] 25 mg PO DAILY 02/21/23 05/11/23 History lisinopriL 2.5 mg PO DAILY 02/21/23 05/11/23 History metFORMIN HCL 1,000 mg PO BID 02/21/23 05/11/23 History Rosuvastatin [Crestor] 10 mg PO HS 05/11/23 05/11/23 History Thiamine [Vitamin B-1] 100 mg PO DAILY tab 05/15/23 Rx Allergies Allergy/AdvReac Type Severity Reaction Status Date / Time No Known Allergies Allergy Verified 05/11/23 15:09 Physical Exam Vitals: Vital Signs Temp Pulse Resp BP Pulse Ox 08/16/23 08:21 98.1 F 97 18 126/77 96 08/16/23 01:50 97.7 F 80 18 105/62 98 Intake and Output 08/15/23 08/16/23 08/16/23 22:59 06:59 14:59 Other: Weight 90.718 kg GENERAL: The patient is alert and oriented x3, not in any acute distress. Well developed, well nourished. HEENT: Pupils are round and equally reacting to light. EOMI. No scleral icterus. No conjunctival pallor. Normocephalic, atraumatic. No pharyngeal erythema. No thyromegaly. CARDIOVASCULAR: S1 and S2 present. No murmurs, rubs, or gallops. PULMONARY: Chest is clear to auscultation, no wheezing , no crackles. ABDOMEN: Soft, nontender, nondistended, normoactive bowel sounds. No palpable organomegaly. MUSCULOSKELETAL: No joint swelling or deformity. -EXTREMITIES: No cyanosis, clubbing, or pedal edema. Very small superficial abrasion about 2-4 mm on the left foot, no other wound or cellulitis or discharge -NEUROLOGICAL: Gross neurological examination did not reveal any focal deficits. Mild tremor of the upper extremities SKIN: No rashes. no petechiae. Results CBC & Chem 7: 08/16/23 07:06 08/16/23 04:26 Labs: Abnormal Lab Results - Last 24 Hours (Table) 08/16/23 08/16/23 08/16/23 Range/Units 01:53 04:26 06:27 RBC (4.30-5.90) m/uL Hgb (13.0-17.5) gm/dL Hct (39.0-53.0) % MCV (80.0-100.0) fL RDW (11.5-15.5) % Plt Count (150-450) k/uL Carbon Dioxide 19 L (22-30) mmol/L BUN 5 L (9-20) mg/dL Glucose 186 H (74-99) mg/dL POC Glucose (mg/dL) 258 H 171 H (70-110) mg/dL AST 95 H (17-59) U/L Serum Alcohol 352 H* mg/dL 08/16/23 Range/Units 07:06 RBC 3.62 L (4.30-5.90) m/uL Hgb 12.2 L (13.0-17.5) gm/dL Hct 36.4 L (39.0-53.0) % MCV 100.8 H (80.0-100.0) fL RDW 17.3 H (11.5-15.5) % Plt Count 81 L (150-450) k/uL Carbon Dioxide (22-30) mmol/L BUN (9-20) mg/dL Glucose (74-99) mg/dL POC Glucose (mg/dL) (70-110) mg/dL AST (17-59) U/L Serum Alcohol mg/dL Assessment and Plan Assessment: Alcohol intoxication at-risk of withdrawal Mild anemia Chronic thrombocytopenia most likely related to alcohol effect Diabetes mellitus with mild hyperglycemia Very mild superficial and a small wound of the left foot Plan: Continue with CIWA protocol Thiamine Gentle hydration Labs and medication were reviewed.. Continue same treatment. Continue with symptomatic treatment. Resume home medication. Monitor labs and vitals. DVT and GI prophylaxis. Further recommendations as per clinical course of the patient DVT prophylaxis: Subcutaneous heparin GI Prophylaxis: Pepcid PT/OT: Pending Prognosis is guarded
[2023-08-16] MEDS: chlordiazePOXIDE 25 MG CAP PO SCH ×3 (13:47→21:31)
[2023-08-16 16:40] LABS: Glucose,Whole Blood 196 mg/dL (70-110)
[2023-08-16] MEDS: HEPARIN SODIUM,PORCINE 5,000 UNIT/ML 1 ML VIAL SQ SCH (20:11)
[2023-08-17] MEDS: FAMOTIDINE 20 MG TAB PO SCH ×2 (08:34→21:05)
[2023-08-17] MEDS: THIAMINE 100 MG TAB PO SCH (08:34)
[2023-08-17] MEDS: HEPARIN SODIUM,PORCINE 5,000 UNIT/ML 1 ML VIAL SQ SCH ×2 (08:34→21:06)
[2023-08-17] MEDS: chlordiazePOXIDE 25 MG CAP PO SCH (08:34)
[2023-08-17] MEDS: SODIUM CHLORIDE 0.9% 1,000 ML IV SCH (10:16)
--- NOTE | 2023-08-17 15:11 | P.PN ---
Subjective This is a pleasant 58 years old -[place] male with multiple medical problems. Was brought because of alcohol intoxication. I saw the patient in the emergency room he was fully awake and oriented, he was calm. He denies any specific symptoms. He knows he is in the hospital and he follows commands. The last thing he remembers he was at his home drinking alcohol and he doesn't know why he came to the hospital. He denies chest pain dyspnea. No urinary or GI complaints or change in his habits. No fever. No headache dizziness weakness or numbness. No blurred vision or slurred speech. Patient denies smoking or illicit drugs he states he drinks beer of 24 hours about 4-5 of them. He denies liquor or wine. Patient denies depression or suicidal or homicidal ideation. He denies hallucination or delusions to me. Hemodynamically stable Hemoglobin 12.2, platelet count is 80 Rest of the BMP, liver enzymes and bilirubin and urine drug screen are reviewed and they are unremarkable Level was elevated 352. 08/17/2023 alcohol withdrawal, patient is willing to stop drinking, he denies depression suicidal addition. Stop Librium as his CIWA score 0. From chronic work and difficulty for several months and he wants to get some rehab as advised to him by his PCP Also complaining of from mild bilateral leg swelling, we will order ultrasound to rule out DVT Possible discharge in 24-48 hours if he keeps improving Objective - Vital Signs Vital signs: Vital Signs Temp 98.9 F 08/16/23 16:34 Pulse 72 08/17/23 05:00 Resp 18 08/17/23 05:00 BP 122/70 08/17/23 05:00 Pulse Ox 98 08/17/23 05:00 FiO2 - Exam GENERAL: The patient is alert and oriented x3, not in any acute distress. Well developed, well nourished. HEENT: Pupils are round and equally reacting to light. EOMI. No scleral icterus. No conjunctival pallor. Normocephalic, atraumatic. No pharyngeal erythema. No thyromegaly. CARDIOVASCULAR: S1 and S2 present. No murmurs, rubs, or gallops. PULMONARY: Chest is clear to auscultation, no wheezing , no crackles. ABDOMEN: Soft, nontender, nondistended, normoactive bowel sounds. No palpable organomegaly. MUSCULOSKELETAL: No joint swelling or deformity. -EXTREMITIES: No cyanosis, clubbing, or mild bilateral leg edema. NEUROLOGICAL: Gross neurological examination did not reveal any focal deficits. SKIN: No rashes. no petechiae. - Labs CBC & Chem 7: 08/16/23 07:06 08/16/23 04:26 Labs: Abnormal Lab Results - Last 24 Hours (Table) 08/16/23 Range/Units 16:39 POC Glucose (mg/dL) 196 H (70-110) mg/dL Assessment and Plan Assessment: Alcohol intoxication at-risk of withdrawal, stable Bilateral leg edema, mild Chronic work and difficulty most likely related to his alcohol effect Mild anemia Chronic thrombocytopenia most likely related to alcohol effect Diabetes mellitus with mild hyperglycemia Very mild superficial and a small wound of the left foot Plan: Continue with CIWA protocol Thiamine DC Gentle hydration Check ultrasound of the legs and give Lasix DC Librium Labs and medication were reviewed.. Continue same treatment. Continue with symptomatic treatment. Resume home medication. Monitor labs and vitals. DVT and GI prophylaxis. Further recommendations as per clinical course of the patient DVT prophylaxis: Subcutaneous heparin GI Prophylaxis: Pepcid PT/OT: Pending Prognosis is guarded
[2023-08-17] MEDS: ASPIRIN 81 MG PO SCH (15:24)
[2023-08-17] MEDS: FUROSEMIDE 10 MG/ML 4 ML VIAL IV SCH ×2 (15:25→21:02)
[2023-08-17] MEDS: glipiZIDE 10 MG TAB PO SCH (17:13)
[2023-08-17] MEDS ORDERED: ATORVASTATIN 20 MG TAB PO SCH (21:00)
[2023-08-17] MEDS: metFORMIN 500 MG TAB PO SCH (21:05)
--- NOTE | 2023-08-17 23:44 | US ---
EXAMINATION TYPE: US venous doppler duplex LE BI DATE OF EXAM: 08/17/2023 3:58 PM COMPARISON: NONE CLINICAL INDICATION: Male, 58 years old with history of leg swelling; Edema bilateral legs, worse on the left SIDE PERFORMED: Bilateral TECHNIQUE: The lower extremity deep venous system is examined utilizing real time linear array sonog sandi with graded compression, doppler sonography and color-flow sonography. VESSELS IMAGED: Common Femoral Vein Deep Femoral Vein Greater Saphenous Vein * Femoral Vein Popliteal Vein Small Saphenous Vein * Proximal Calf Veins (* superficial vessels) Imaged veins fill normally with color flow signal, show appropriate waveforms without evidence of int raluminal filling defects or noncompressibility. No evidence of DVT detected. Right Leg: No evidence of DVT Left Leg: No evidence of DVT IMPRESSION: No evidence of DVT in either lower extremity.
[2023-08-18 07:43] VITALS: BP 134/88; PULSE 69; RESP 16; TEMP 98.2
[2023-08-18 09:42] LABS: African American GFR (CKD) >90 (>60 ml/min/1.73 sqM); Anion Gap 13 mmol/L; Blood Urea Nitrogen 9 mg/dL (9-20); Calcium 9.4 mg/dL (8.4-10.2); Carbon Dioxide 25 mmol/L (22-30); Chloride 95 mmol/L (98-107); Glucose 169 mg/dL (74-99); Non-African American GFR(CKD) >90 (>60 ml/min/1.73 sqM); Sodium 133 mmol/L (137-145)
[2023-08-18] MEDS: glipiZIDE 10 MG TAB PO SCH (09:42)
[2023-08-18] MEDS: FAMOTIDINE 20 MG TAB PO SCH (09:43)
[2023-08-18] MEDS: metFORMIN 500 MG TAB PO SCH (09:43)
[2023-08-18] MEDS: ASPIRIN 81 MG PO SCH (09:43)
[2023-08-18] MEDS: THIAMINE 100 MG TAB PO SCH (09:43)
[2023-08-18] MEDS: FUROSEMIDE 10 MG/ML 4 ML VIAL IV SCH (09:43)
[2023-08-18] MEDS: HEPARIN SODIUM,PORCINE 5,000 UNIT/ML 1 ML VIAL SQ SCH (09:44)
[2023-08-18 09:56] LABS: Potassium 3.6 mmol/L (3.5-5.1)
[2023-08-18 11:10] LABS: Basophils # (A) 0.03 X 10*3/uL (0.00-0.10); Basophils % (A) 0.7 %; Eosinophils # (A) 0.01 X 10*3/uL (0.04-0.35); Eosinophils % (A) 0.2 %; HCT 38.3 % (39.6-50.0); HGB 13.4 g/dL (13.0-17.0); Immature Platelet Fraction 8.4 % (1.1-6.1); Lymphocytes # (A) 0.95 X 10*3/uL (0.90-5.00); Lymphocytes % (A) 22.1 %; MCH 33.1 pg (27.0-32.0); MCV 94.6 FL (80.0-97.0); Mean Platelet Volume 11.1 FL (9.5-12.2); Monocytes # (A) 1.05 X 10*3/uL (0.20-1.00); Monocytes % (A) 24.4 %; NRBC Per 100 WBC 0 X 10*3/uL (0.00-0.01); Neutrophils # (A) 2.24 X 10*3/uL (1.80-7.70); Neutrophils % (A) 52.1 %; Platelet Count 87 X 10*3/uL (140-440); RBC 4.05 X 10*6/uL (4.40-5.60); RDW 17.5 % (11.5-14.5)
[2023-08-18] MEDS ORDERED: chlordiazePOXIDE 25 MG CAP PO SCH (13:34)
[2023-08-18] MEDS ORDERED: traZODone HCL 50 MG TAB PO PRN (14:03)
--- NOTE | 2023-08-18 14:35 | P.CN ---
Psychiatric Consult - . Consult date: 08/18/23 Consult:: 08/18/23 13:31 IDENTIFYING DATA: This patient is a 58-year-old -[place] male who currently lives with a roommate in a house, he is single, he has 4 kids. REASON FOR REFERRAL: Psychiatry was consulted for alcohol dependence and mood disorder HISTORY OF PRESENT ILLNESS: The patient presented to the hospital initially on 06/16 for alcohol abuse and intoxication. Patient had a negative urine drug screen. His blood-alcohol level is fairly elevated at 352. She has been fairly calm and cooperative with nurse and also hospitalist. Patient was seen today laying in bed and agreeable to strict scientific technical writer. He was following commands, was somewhat slow to respond however did answer questions appropriately. He states that he came in the hospital because he was drinking. He claims that he drinks about 4 cans regularly of beer. He states he does not believe that he has much of a drinking problem. Claims that he did have a DUI several years ago. He claims that he is not feeling depressed anxious or having any mood swings. States that he is unemployed which is causing some stress for him. He states that his sleep has been on and off, we spoke about sleeping medications that she is okay with trying trazodone. States that his appetite is fair. He is denying any current cravings for alcohol however was agreeable to try naltrexone. At this time patient denies any suicidal or homical ideations, intent or plan. Patient denies any auditory, visual hallucinations and denies any paranoia or delusions. Patients admits to using alcohol as noted above, states that he went to rehab once in the past. Denies any other recreational drug use. Denies any cigarette or marijuana use. PAST PSYCHIATRIC HISTORY: Patient has a a history of alcohol use disorder. Patient denies being on any psychiatric medications. Patient denies any previous psychiatric hospitalizations. Patient denies any psychiatric outpatient follow- up. Patient denies any history of suicide attempts in the past. Past Medical History: Diabetes Mellitus, Hyperlipidemia, Hypertension Additional Past Medical History / Comment(s): lower back pain, hurt back at work History of Any Multi-Drug Resistant Organisms: None Reported Past Surgical History: Hernia Repair Past Anesthesia/Blood Transfusion Reactions: No Reported Reaction Past Psychological History: No Psychological Hx Reported Smoking Status: Never smoker Past Alcohol Use History: Occasional Past Drug Use History: None Reported ALLERGIES: as per EMR. CHEMICAL DEPENDENCY HISTORY: as per HPI. FAMILY PSYCHIATRIC/SUBSTANCE USE HISTORY: denies SOCIAL HISTORY: Patient was born and raised in [place]. He states that he completed high school. 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 He claims that he is single, he has 4 kids, currently lives with a roommate in a house. MENTAL STATUS EXAM: General Appearance: Patient appears to be stated age is alert, pleasant, and attempts to be cooperative. Patient appears to have fair hygiene and grooming wearing hospital gown with fair eye contact. Behavior: Patient is calmly lying in bed without any agitated behavior. Speech: Patient's speech is fluent and nonpressured. Somewhat slow to respond Mood/Affect: Patient reports their mood is "fine", affect is congruent Suicidality/Homicidality: Patient denies having any suicidal or homicidal ideation intent or plan. Perceptions: Patient denies any visual hallucinations and denies any auditory hallucinations Though content/process: There is no evidence of any delusional thought content and thought process is linear and goal-directed. [place] Memory and concentration: AOX3, grossly intact for the purposes of this session. Can spell "WORLD" backwards Judgment and insight: Somewhat limited IMPRESSIONS: Alcohol use disorder PLAN: -At this time patient DOES NOT meet criteria for inpatient psychiatric admission. -Would recommend the following medication changes/additions: Can taper off Librium scheduled for alcohol withdrawal. Start naltrexone by mouth 50 mg daily for alcohol cravings. Trazodone 25-50 mg daily at bedtime when necessary for insomnia. -CIWA protocol with PRN Ativan for alcohol withdrawal. Continue to monitor vital signs. -migratory worker to provide patient with outpatient mental health/psychiatry resources for appropriate follow up upon discharge -Web Engineer spoke with patient about substance abuse and the harmful effects on medical and mental health, patient verbally understood and agreed. -migratory worker to provide patient substance use treatment resources including AA/NA meetings in the community. -Communicated plan to patient's nurse -Psychiatry will sign off at this time -Please contact with any questions. 08/18/23 14:31
[2023-08-18] MEDS ORDERED: NALTREXONE HCL 50 MG TAB PO SCH (15:00)
--- NOTE | 2023-08-19 07:38 | P.DS ---
Providers Date of admission: 08/16/23 06:40 Attending physician: Benjie Dang Consults: 08/16/23 06:54 Consult Physician Routine Consulting Provider: Ross Carlson Consult Reason/Comments: Alcohol dependence. Mood disorder Do you want consulting provider notified?: Already Contacted 08/18/23 13:37 Consult Physician Urgent Consulting Provider: Ross Carlson Consult Reason/Comments: depreesion ,pt is petitioned Do you want consulting provider notified?: Yes Primary care physician: Reinaldo Hubbard [facility] Course: Diagnoses: Alcohol intoxication with no signs symptoms of alcohol, withdrawal, stable Bilateral leg edema, mild, ultrasound negative for DVT could be secondary to the IV fluids received in the emergency room Metabolic/toxic encephalopathy secondary to alcoholism, improved and patient back to basic mental status more than 24 hours. The patient was suspected suicidal ideation by his sister who petitioned him, patient evaluated by psychiatrist and cleared her for discharge. Patient currently is not suicidal Mild anemia Chronic thrombocytopenia most likely related to alcohol effect Diabetes mellitus with mild hyperglycemia Very mild superficial and a small wound of the left foot Hospital course: This is a pleasant 58 years old -[place] male with multiple medical problems. Was brought because of alcohol intoxication. I saw the patient in the emergency room he was fully awake and oriented, he was calm. He denies any specific symptoms. He knows he is in the hospital and he follows commands. he states he drinks beer of 24 hours about 4-5 of them. He denies liquor or wine. Patient was monitored for more than 48 hours and he remained stable with no signs symptoms of alcohol withdrawal. He has mild leg swelling and ultrasound was negative for acute DVT. When asked the patient he says he has mild depression but he denies suicidal or homicidal ideation. On the day of discharge patient was petitioned by his sister for depression and previous comments to call himself is his mother dies, I asked the patient when his mother he states this started about 2 years ago however patient denies suicidal or homicidal ideation, within a few minutes after all of the patient from I met the psychiatrist Dr. Carlson who evaluated him at the same time and found him does not meet criteria for inpatient psychiatry unit, alternatively he could be discharge on trazodone and Neltrexone which provided for him for alcohol graving Patient remains clinically stable and he denies chest pain dyspnea are any other new complaints and is eager to go home today. His walking the hallway with no difficulty. And he is willing to quit alcohol but he does not need any benzodiazepine upon discharge as his CIWA score was low or 2 days. And he does not need any benzodiazepine for the last 24 hours for his alcohol withdrawal. Patient was cleared for discharge by psychiatrist as above. Problems and management plan were discussed with the patient and he verbalized understanding and acceptance Patient was found stable and can be discharged home in guarded prognosis however he needs follow-up as an outpatient. Patient was instructed to follow up with PCP Dr. mahoney one week and patient agrees Patient told me he has all his home medication and he does not take any prescription for them upon discharge Physical exam Gen: patient is a AAOx3, no distress CVS: S1-S2, RRR, no murmur Lungs: B/L CTA, no wheezing Abdomen: soft, no distention, no tenderness, positive bowel sounds Extremity: no leg edema or induration Time spent more than 35 minutes Plan - Discharge Summary New Discharge Prescriptions: New Naltrexone HCl [Revia] 50 mg PO DAILY #30 tab Thiamine [Vitamin B-1] 100 mg PO DAILY #15 tab traZODone HCL [Desyrel] 25 mg PO HS PRN #15 tab PRN Reason: Insomnia Continue Empagliflozin [Jardiance] 25 mg PO DAILY Atorvastatin [Lipitor] 20 mg PO HS Aspirin EC [Ecotrin Low Dose] 81 mg PO DAILY lisinopriL 2.5 mg PO DAILY metFORMIN HCL 1,000 mg PO BID glipiZIDE [Glucotrol] 10 mg PO AC-BID Discharge Medication List Empagliflozin [Jardiance] 25 mg PO DAILY 02/21/23 [History] lisinopriL 2.5 mg PO DAILY 02/21/23 [History] metFORMIN HCL 1,000 mg PO BID 02/21/23 [History] Aspirin EC [Ecotrin Low Dose] 81 mg PO DAILY 08/16/23 [History] Atorvastatin [Lipitor] 20 mg PO HS 08/16/23 [History] glipiZIDE [Glucotrol] 10 mg PO AC-BID 08/16/23 [History] Naltrexone HCl [Revia] 50 mg PO DAILY #30 tab 08/18/23 [Rx] Thiamine [Vitamin B-1] 100 mg PO DAILY #15 tab 08/18/23 [Rx] traZODone HCL [Desyrel] 25 mg PO HS PRN #15 tab 08/18/23 [Rx] Follow up Appointment(s)/Referral(s): Reinaldo Hubbard [Primary Care Provider] - 1-2 days Activity/Diet/Wound Care/Special Instructions: Heart healthy diet Activity is restricted till you see your doctor We recommend to check your glucose 4 times a day, before each meal and at bedtime, keep the results in a log book and bring into your doctor on your appointment date If glucose less than 70 or more than 400 then call 911 and come to emergency room Discharge/Stand Alone Forms: AA Meetings [facility], Who Do I Call?, Community Resources, Outpatient Counseling, Inp Substance Abuse Facilities Discharge Disposition: HOME SELF-CARE
== END 2023-08-18 15:53 | disposition home or self-care (01) ==
LOC: EC 01:47 → 5NMEDONC 06:40 → EEVIPCON 06:40 → 5NMEDONC 08:58 → 6NMEDSUR 08-17 21:27
PROVIDERS: ADMIT Hospitalist; ATTEND Hospitalist
DX: F10.229 Alcohol dependence with intoxication, unspecified (principal); Y90.8 Blood alcohol level of 240 mg/100 ml or more; D64.9 Anemia, unspecified; D69.6 Thrombocytopenia, unspecified; E11.65 Type 2 diabetes mellitus with hyperglycemia; S90.922A Unspecified superficial injury of left foot, initial encounter; X58.XXXA Exposure to other specified factors, initial encounter; R60.0 Localized edema; G92.8 Other toxic encephalopathy; E78.5 Hyperlipidemia, unspecified; I10 Essential (primary) hypertension; Z56.0 Unemployment, unspecified; Z79.84 Long term (current) use of oral hypoglycemic drugs; Z79.899 Other long term (current) drug therapy
CPT/HCPCS: 96372 ×3; 96376; 96361; 96374; 99285; 36415; 97161; 97165; 80053; 80048; 85025 ×2; 80306; 80320; 93970; G0378 ×5; J1644 ×3; J1940; J3411

== ENCOUNTER 2024-07-10 02:25 | Observation (INO) | payer OTHER ==
--- NOTE | 2024-07-10 02:36 | ED ---
Alcohol HPI - General Chief Complaint: Alcohol Stated Complaint: ETOH Time Seen by Provider: 07/10/24 02:40 Source: patient, family, EMS, RN notes reviewed Mode of arrival: EMS - History of Present Illness Initial Comments: This is a 59-year-old male with a history of alcohol abuse disorder presenting to the emergency department via EMS for chief complaint of alcohol intoxication and fall. It is reported that patient normally drinks upwards of 12 to 24 ounces of beer per day. Patient's cousin is living with the patient currently and called patient's sister who is partial legal guardian due to patient falling earlier and was unable to get up due to weakness. Patient denies hitting his head at the time of the fall or loss of consciousness. He denies chest pain, abdominal pain, shortness of breath, difficulty breathing, urinary or bowel changes. Denies fevers or chills. - Related Data Home Medications Medication Instructions Recorded Confirmed Empagliflozin [Jardiance] 25 mg PO DAILY 02/21/23 07/10/24 lisinopriL 2.5 mg PO DAILY 02/21/23 07/10/24 Cholecalciferol (Vitamin D3) 50 mcg PO DAILY 07/10/24 07/10/24 [Vitamin D3 (50 Mcg = 2000 Iu)] Folic Acid 1 mg PO DIRECTED 07/10/24 07/10/24 Insulin Glargine,Hum.rec.anlog 10 units SQ DAILY 07/10/24 07/10/24 [Lantus Solostar Pen] Pantoprazole Sodium [Protonix] 20 mg PO DIRECTED 07/10/24 07/10/24 Rosuvastatin [Crestor] 10 mg PO HS 07/10/24 07/10/24 Previous Rx's Medication Instructions Recorded Thiamine [Vitamin B-1] 100 mg PO DAILY #15 tab 08/18/23 Allergies Allergy/AdvReac Type Severity Reaction Status Date / Time No Known Allergies Allergy Verified 07/10/24 09:44 Review of Systems ROS Statement: Those systems with pertinent positive or pertinent negative responses have been documented in the HPI. ROS Other: All systems not noted in ROS Statement are negative. Past Medical History Past Medical History: Diabetes Mellitus, Hyperlipidemia, Hypertension Additional Past Medical History / Comment(s): lower back pain, hurt back at work History of Any Multi-Drug Resistant Organisms: None Reported Past Surgical History: Hernia Repair Past Anesthesia/Blood Transfusion Reactions: No Reported Reaction Past Psychological History: No Psychological Hx Reported Smoking Status: Never smoker Past Alcohol Use History: Occasional Past Drug Use History: None Reported - Past Family History Father Family Medical History: Cancer General Exam General appearance: alert, in no apparent distress, appears intoxicated Eye exam: Present: normal appearance, PERRL, EOMI. Absent: scleral icterus, conjunctival injection, periorbital swelling ENT exam: Present: normal exam, mucous membranes moist Neck exam: Present: normal inspection. Absent: tenderness, meningismus, lymphadenopathy Respiratory exam: Present: normal lung sounds bilaterally. Absent: respiratory distress, wheezes, rales, rhonchi, stridor Cardiovascular Exam: Present: regular rate, normal rhythm, normal heart sounds. Absent: systolic murmur, diastolic murmur, rubs, gallop, clicks GI/Abdominal exam: Present: soft, distended, normal bowel sounds. Absent: tend erness, guarding, rebound, rigid Extremities exam: Present: other (bilateral LE edema with chronic appearing wound over the anterior distal left pop) Back exam: Present: normal inspection Skin exam: Present: warm, dry, intact, normal color. Absent: rash Course Vital Signs 07/10/24 07/10/24 07/10/24 02:28 05:32 07:36 Temperature 97.7 F 98.9 F Pulse Rate 102 H 99 109 H Respiratory 18 18 17 Rate Blood Pressure 132/78 108/64 111/70 O2 Sat by Pulse 96 98 98 Oximetry 07/10/24 07/10/24 08:50 10:14 Temperature 99.9 F H Pulse Rate 100 101 H Respiratory 16 18 Rate Blood Pressure 119/75 109/71 O2 Sat by Pulse 97 96 Oximetry Medical Decision Making - Medical Decision Making Was pt. sent in by a medical professional or institution (, PA, SOFT METALS ENGRAVER HAND, urgent care, hospital, or jail...) When possible be specific @ -No Did you speak to anyone other than the patient for history (EMS, parent, family, police, friend...)? What history was obtained from this source @ -No Did you review nursing and triage notes (agree or disagree)? Why? @ -I reviewed and agree with nursing and triage notes Were old charts reviewed (outside hosp., previous admission, EMS record, old EKG, old radiological studies, urgent care reports/EKG's, jail records)? Report findings @ -No old charts were reviewed Differential Diagnosis (chest pain, altered mental status, abdominal pain women, abdominal pain men, vaginal bleeding, weakness, fever, dyspnea, syncope, headache, dizziness, GI bleed, back pain, seizure, CVA, palpatations, mental health, musculoskeletal)? @ -Differential Weakness: Hypoglycemia, shock, sepsis, hyponatremia, anemia, infection, FL, ETOH, adverse medicine reaction, overdose, stroke, this is not meant to be an all-inclusive list. EKG interpreted by me (3pts min.). @ -Completed at 313 sinus rhythm with ventricular rate 99, parable 153, QRS 81, QTc 403. No acute signs of ischemia. X-rays interpreted by me (1pt min.). @ -None done CT interpreted by me (1pt min.). @ -None done U/S interpreted by me (1pt. min.). @ -None done What testing was considered but not performed or refused? (CT, X-rays, U/S, labs)? Why? @ -None What meds were considered but not given or refused? Why? @ -None Did you discuss the management of the patient with other professionals (professionals i.e. , PA, SO[employer] ENGRAVER HAND, lab, RT, psych nurse, social insurance analyst, residence manager, teacher, aeronautical engineering officer, transplant case manager)? Give summary @ -my attending spoke with [facility] in regard to admission for alcohol abuse with impending alcohol withdrawl and failure to thrive/completion of ADLs Was smoking cessation discussed for >3mins.? @ -No Was critical care preformed (if so, how long)? @ -No Were there social determinants of health that impacted care today? How? (Homelessness, low income, unemployed, alcoholism, drug addiction, transportation, low edu. Level, literacy, decrease access to med. care, fci, re hab)? @ -No Was there de-escalation of care discussed even if they declined (Discuss DNR or withdrawal of care, Hospice)? DNR status @ -No What co-morbidities impacted this encounter? (DM, HTN, Smoking, COPD, CAD, Cancer, CVA, ARF, Chemo, Hep., AIDS, mental health diagnosis, sleep apnea, morbid obesity)? @ -alcohol abuse Was patient admitted / discharged? Hospital course, mention meds given and ro alfredo, prescriptions, significant lab abnormalities, going to OR and other pertinent info. @ -Admitted. 59-year-old male presenting via EMS for chief complaint of alcohol intoxication, weakness and multiple falls. On initial evaluation patient is noted to appear intoxicated. His vital signs reveal a mild tachycardia with heart rate of 109. He is denying any pain. He is noted to have a distended abdomen and bilateral lower extremity edema. Patient is placed on CIWA protocol. Patient is noted to have anemia with a hemoglobin of 11.3 and hematocrit 34.5 which appears chronic for the patient as compared to previous studies. CMP reveals hyperglycemia with a glucose of 234, urine toxicology positive for benzodiazepines and serum alcohol level of 192. Patient will be admitted to internal medicine for impending alcohol withdrawal and failure to thrive. Case discussed with my attending Dr. Pierce Undiagnosed new problem with uncertain prognosis? @ -No Drug Therapy requiring intensive monitoring for toxicity (Heparin, Nitro, Insulin, Cardizem)? @ -No Were any procedures done? @ -No Diagnosis/symptom? @ -Alcohol abuse and impending withdrawal, failure to thrive, weakness Acute, or Chronic, or Acute on Chronic? @ -Acute Uncomplicated (without systemic symptoms) or Complicated (systemic symptoms)? @ -Complicated Side effects of treatment? @ -No Exacerbation, Progression, or Severe Exacerbation? @ -No Poses a threat to life or bodily function? How? (Chest pain, USA, FL, pneumonia, PE, COPD, DKA, ARF, appy, cholecystitis, CVA, Diverticulitis, Homicidal, Suicida l, threat to staff... and all critical care pts) @ -No - Lab Data Result diagrams: 07/10/24 03:59 07/10/24 03:59 Lab Results 07/10/24 07/10/24 07/10/24 Range/Units 03:20 03:58 03:59 WBC 5.6 (3.8-10.6) k/uL RBC 3.36 L (4.30-5.90) m/uL Hgb 11.3 L (13.0-17.5) gm/dL Hct 34.5 L (39.0-53.0) % MCV 102.6 H (80.0-100.0) fL MCH 33.6 (25.0-35.0) pg MCHC 32.7 (31.0-37.0) g/dL RDW 16.7 H (11.5-15.5) % Plt Count 145 L (150-450) k/uL MPV 9.6 Neutrophils % 69 % Lymphocytes % 20 % Monocytes % 8 % Eosinophils % 2 % Basophils % 0 % Neutrophils # 3.9 (1.3-7.7) k/uL Lymphocytes # 1.1 (1.0-4.8) k/uL Monocytes # 0.4 (0-1.0) k/uL Eosinophils # 0.1 (0-0.7) k/uL Basophils # 0.0 (0-0.2) k/uL Anisocytosis Slight Macrocytosis Moderate PT (10.0-12.5) sec INR (<1.2) Sodium (137-145) mmol/L Potassium (3.5-5.1) mmol/L Chloride (98-107) mmol/L Carbon Dioxide (22-30) mmol/L Anion Gap mmol/L BUN (9-20) mg/dL Creatinine (0.66-1.25) mg/dL Est GFR (CKD-EPI)AfAm (>60 ml/min/1.73 sqM) Est GFR (CKD-EPI)NonAf (>60 ml/min/1.73 sqM) Glucose (74-99) mg/dL POC Glucose (mg/dL) 215 H (70-110) mg/dL POC Glu Analyzer Sales ID [place] Calcium (8.4-10.2) mg/dL Magnesium (1.6-2.3) mg/dL Total Bilirubin (0.2-1.3) mg/dL AST (17-59) U/L ALT (4-49) U/L Alkaline Phosphatase (38-126) U/L NT-Pro-B Natriuret Pep pg/mL Total Protein (6.3-8.2) g/dL Albumin (3.5-5.0) g/dL Urine Color Colorless Urine Appearance Clear (Clear) Urine pH 5.0 (5.0-8.0) Ur Specific [place] 1.002 (1.001-1.035) Urine Protein Negative (Negative) Urine Glucose (UA) 4+ H (Negative) Urine Ketones Negative (Negative) Urine Blood Negative (Negative) Urine Nitrite Negative (Negative) Urine Bilirubin Negative (Negative) Urine Urobilinogen <2.0 (<2.0) mg/dL Ur Leukocyte Esterase Negative (Negative) Urine Opiates Screen Not Detected (NotDetected) Ur Oxycodone Screen Not Detected (NotDetected) Urine Methadone Screen Not Detected (NotDetected) Ur Barbiturates Screen Not Detected (NotDetected) U Tricyclic Antidepress Not Detected (NotDetected) Ur Phencyclidine Scrn Not Detected (NotDetected) Ur Amphetamines Screen Not Detected (NotDetected) U Methamphetamines Scrn Not Detected (NotDetected) U Benzodiazepines Scrn Detected H (NotDetected) Urine Cocaine Screen Not Detected (NotDetected) U Marijuana (THC) Screen Not Detected (NotDetected) Serum Alcohol mg/dL 07/10/24 07/10/24 07/10/24 Range/Units 03:59 03:59 03:59 WBC (3.8-10.6) k/uL RBC (4.30-5.90) m/uL Hgb (13.0-17.5) gm/dL Hct (39.0-53.0) % MCV (80.0-100.0) fL MCH (25.0-35.0) pg MCHC (31.0-37.0) g/dL RDW (11.5-15.5) % Plt Count (150-450) k/uL MPV Neutrophils % % Lymphocytes % % Monocytes % % Eosinophils % % Basophils % % Neutrophils # (1.3-7.7) k/uL Lymphocytes # (1.0-4.8) k/uL Monocytes # (0-1.0) k/uL Eosinophils # (0-0.7) k/uL Basophils # (0-0.2) k/uL Anisocytosis Macrocytosis PT 10.7 (10.0-12.5) sec INR 1.0 (<1.2) Sodium 137 (137-145) mmol/L Potassium 4.6 (3.5-5.1) mmol/L Chloride 108 H (98-107) mmol/L Carbon Dioxide 21 L (22-30) mmol/L Anion Gap 8 mmol/L BUN <2 L (9-20) mg/dL Creatinine 0.52 L (0.66-1.25) mg/dL Est GFR (CKD-EPI)AfAm >90 (>60 ml/min/1.73 sqM) Est GFR (CKD-EPI)NonAf >90 (>60 ml/min/1.73 sqM) Glucose 234 H (74-99) mg/dL POC Glucose (mg/dL) (70-110) mg/dL POC Glu Analyzer Sales ID Calcium 7.5 L (8.4-10.2) mg/dL Magnesium 1.7 (1.6-2.3) mg/dL Total Bilirubin 1.4 H (0.2-1.3) mg/dL AST 93 H (17-59) U/L ALT 34 (4-49) U/L Alkaline Phosphatase 57 (38-126) U/L NT-Pro-B Natriuret Pep 201 pg/mL Total Protein 6.6 (6.3-8.2) g/dL Albumin 3.4 L (3.5-5.0) g/dL Urine Color Urine Appearance (Clear) Urine pH (5.0-8.0) Ur Specific [place] (1.001-1.035) Urine Protein (Negative) Urine Glucose (UA) (Negative) Urine Ketones (Negative) Urine Blood (Negative) Urine Nitrite (Negative) Urine Bilirubin (Negative) Urine Urobilinogen (<2.0) mg/dL Ur Leukocyte Esterase (Negative) Urine Opiates Screen (NotDetected) Ur Oxycodone Screen (NotDetected) Urine Methadone Screen (NotDetected) Ur Barbiturates Screen (NotDetected) U Tricyclic Antidepress (NotDetected) Ur Phencyclidine Scrn (NotDetected) Ur Amphetamines Screen (NotDetected) U Methamphetamines Scrn (NotDetected) U Benzodiazepines Scrn (NotDetected) Urine Cocaine Screen (NotDetected) U Marijuana (THC) Screen (NotDetected) Serum Alcohol 182 mg/dL Disposition Clinical Impression: Weakness, Alcohol abuse Disposition: ADMITTED IP TO THIS [facility] Condition: Stable
[2024-07-10] MEDS: SODIUM CHLORIDE 0.9% 1,000 ML IV STA (02:52)
[2024-07-10 04:00] LABS: Glucose,Whole Blood 215 mg/dL (70-110)
[2024-07-10 04:22] LABS: Anisocytosis Slight; Basophils % (A) 0 %; Eosinophils # (A) 0.1 k/uL (0-0.7); Eosinophils % (A) 2 %; HCT 34.5 % (39.0-53.0); HGB 11.3 gm/dL (13.0-17.5); Lymphocytes # (A) 1.1 k/uL (1.0-4.8); Lymphocytes % (A) 20 %; MCH 33.6 pg (25.0-35.0); MCHC 32.7 g/dL (31.0-37.0); MCV 102.6 fL (80.0-100.0); Macrocytosis Moderate; Mean Platelet Volume 9.6; Monocytes # (A) 0.4 k/uL (0-1.0); Monocytes % (A) 8 %; Neutrophils # (A) 3.9 k/uL (1.3-7.7); Neutrophils % (A) 69 %; Platelet Count 145 k/uL (150-450); RBC 3.36 m/uL (4.30-5.90); RDW 16.7 % (11.5-15.5); WBC 5.6 k/uL (3.8-10.6)
[2024-07-10 04:30] LABS: Appearance,Urine Clear (Clear); Bilirubin,Urine Negative (Negative); Blood,Urine Negative (Negative); Color,Urine Colorless; Glucose,Urine (UA) 4+ (Negative); Ketones,Urine Negative (Negative); Leukocyte Esterase,Urine Negative (Negative); Nitrite,Urine Negative (Negative); Protein,Urine Negative (Negative); Specific Gravity,Urine 1.002 (1.001-1.035); Urobilinogen,Urine <2.0 mg/dL (<2.0)
[2024-07-10 04:41] LABS: ALT 34 U/L (4-49); AST 93 U/L (17-59); African American GFR (CKD) >90 (>60 ml/min/1.73 sqM); Albumin 3.4 g/dL (3.5-5.0); Alkaline Phosphatase 57 U/L (38-126); Anion Gap 8 mmol/L; Blood Urea Nitrogen <2 mg/dL (9-20); Calcium 7.5 mg/dL (8.4-10.2); Carbon Dioxide 21 mmol/L (22-30); Chloride 108 mmol/L (98-107); Glucose 234 mg/dL (74-99); Magnesium 1.7 mg/dL (1.6-2.3); Non-African American GFR(CKD) >90 (>60 ml/min/1.73 sqM); Potassium 4.6 mmol/L (3.5-5.1); Sodium 137 mmol/L (137-145); Total Bilirubin 1.4 mg/dL (0.2-1.3); Total Protein 6.6 g/dL (6.3-8.2)
[2024-07-10 04:57] LABS: Alcohol 182 mg/dL
[2024-07-10 05:04] LABS: Amphetamine Screen,Urine Not Detected (NotDetected); Barbiturate Screen,Urine Not Detected (NotDetected); Benzodiazepines Screen,Urine Detected (NotDetected); Cocaine Screen,Urine Not Detected (NotDetected); Methadone Screen, Urine Not Detected (NotDetected); Opiate Screen,Urine Not Detected (NotDetected); Oxycodone Screen, Urine Not Detected (NotDetected); Phencyclidine Screen,Urine Not Detected (NotDetected); Tricyclic Antidepressant,Urine Not Detected (NotDetected); Urn Cannabinoid Scrn Not Detected (NotDetected)
[2024-07-10 05:05] LABS: Prothrombin Time 10.7 sec (10.0-12.5)
[2024-07-10] MEDS ORDERED: NALOXONE 0.4 MG/ML 1 ML VIAL IV PRN (07:03)
[2024-07-10] MEDS ORDERED: ACETAMINOPHEN TAB 325 MG TAB PO PRN (07:09)
[2024-07-10] MEDS ORDERED: LORazepam 1 MG TAB PO PRN ×4 (07:12)
[2024-07-10] MEDS ORDERED: LORazepam 2 MG/ML INJ IV PRN (07:12)
[2024-07-10] MEDS ORDERED: LORazepam 0.5 MG TAB PO PRN (07:12)
[2024-07-10] MEDS: THIAMINE 100 MG/ML 2 ML VIAL IM STA (07:51)
[2024-07-10] MEDS: MULTIVITAMINS, THERA 1 EACH TAB PO SCH (08:10)
[2024-07-10] MEDS: FOLIC ACID 1 MG TAB PO SCH (08:10)
[2024-07-10] MEDS: FAMOTIDINE 20 MG TAB PO SCH (08:10)
[2024-07-10] MEDS ORDERED: DEXTROSE 50% SYRINGE 50 ML IVP PRN ×2 (10:32)
[2024-07-10] MEDS: MAGNESIUM SULFATE-D5W PMX 1 GM in DEXTROSE/WATER 1 100ML.BAG IVPB ONE (10:54)
[2024-07-10 11:49] LABS: Glucose,Whole Blood 303 mg/dL (70-110)
[2024-07-10] MEDS: INSULIN DETEMIR (LEVEMIR) 100 UNIT/ML SYR SQ SCH (12:48)
[2024-07-10] MEDS: INSULIN ASPART (NovoLOG) 100 UNIT/ML VIAL SQ SCH (12:48)
[2024-07-10] MEDS: PANTOPRAZOLE 40 MG TABLET PO SCH (12:48)
[2024-07-10 17:40] LABS: Glucose,Whole Blood 173 mg/dL (70-110)
[2024-07-10 20:07] LABS: Glucose,Whole Blood 218 mg/dL (70-110)
--- NOTE | 2024-07-10 23:19 | P.HPIM ---
History of Present Illness H&P Date: 07/10/24 Chief Complaint: Alcohol intoxication Patient is a 59-year-old male with a past medical history of hypertension, hyperlipidemia, diabetes type 2 and low back pain was brought to hospital by EMS due to alcohol intoxication and fall. Patient states that he drinks about 6 to 12 cans of beer a day on daily basis. Patient states that he tripped over the step to go up stairs at home and fell on the floor. His cousin is living with the patient who called EMS. He is also partial legal guardian due to prior history of falls and weakness. Denied any hitting his head. Denied any loss of consciousness. No complaints of chest pain or shortness. No nausea vomiting abdominal pain or diarrhea. No cough or sputum production. No fever or chills. EKG showed sinus rhythm. Laboratory data showed WBC 5.6 hemoglobin 11.3 and MCV 102.6 and platelets 145 Sodium 137 potassium 4.6 chloride 108 bicarb is 21 BUN less than 20 creatinine 0.52 and blood sugar 205 and calcium 7 point revocation 1.7 total bili 1.8 AST 93 ALT 34 and alk phos 201 and albumin 3.4 urinalysis showed 4+ glucose leukocyte esterase negative UDS is positive for benzodiazepines and serum alcohol level is 182 Review of Systems ROS unobtainable: due to mental status Past Medical History Past Medical History: Diabetes Mellitus, Hyperlipidemia, Hypertension Additional Past Medical History / Comment(s): lower back pain, hurt back at work History of Any Multi-Drug Resistant Organisms: None Reported Past Surgical History: Hernia Repair Past Anesthesia/Blood Transfusion Reactions: No Reported Reaction Past Psychological History: No Psychological Hx Reported Smoking Status: Never smoker Past Alcohol Use History: Occasional Past Drug Use History: None Reported - Past Family History Father Family Medical History: Cancer Medications and Allergies Home Medications Medication Instructions Recorded Confirmed Type Empagliflozin [Jardiance] 25 mg PO DAILY 02/21/23 07/10/24 History lisinopriL 2.5 mg PO DAILY 02/21/23 07/10/24 History Thiamine [Vitamin B-1] 100 mg PO DAILY #15 tab 08/18/23 07/10/24 Rx Cholecalciferol (Vitamin D3) 50 mcg PO DAILY 07/10/24 07/10/24 History [Vitamin D3 (50 Mcg = 2000 Iu)] Folic Acid 1 mg PO DIRECTED 07/10/24 07/10/24 History Insulin Glargine,Hum.rec.anlog 10 units SQ DAILY 07/10/24 07/10/24 History [Lantus Solostar Pen] Pantoprazole Sodium [Protonix] 20 mg PO DIRECTED 07/10/24 07/10/24 History Rosuvastatin [Crestor] 10 mg PO HS 07/10/24 07/10/24 History Allergies Allergy/AdvReac Type Severity Reaction Status Date / Time No Known Allergies Allergy Verified 07/10/24 09:44 Physical Exam Vitals: Vital Signs Temp Pulse Resp BP Pulse Ox 07/10/24 10:14 99.9 F H 101 H 18 109/71 96 07/10/24 08:50 100 16 119/75 97 07/10/24 07:36 98.9 F 109 H 17 111/70 98 07/10/24 05:32 99 18 108/64 98 07/10/24 02:28 97.7 F 102 H 18 132/78 96 Intake and Output 07/09/24 07/10/24 07/10/24 22:59 06:59 14:59 Other: Weight 86.183 kg PHYSICAL EXAMINATION: Patient is lying in the bed, no acute distress, awake alert and oriented. Drowsy and lethargic.. HEENT: Normocephalic. Neck is supple. Pupils reactive. Nostrils clear. Oral cavity is moist. Neck reveals no JVD, carotid bruits, or thyromegaly. CHEST EXAMINATION: Trachea is central. Symmetrical expansion. Lung renteria clear to auscultation and percussion. CARDIAC: Normal S1, S2 with no gallops. No murmurs ABDOMEN: Soft. Bowel sounds normal. No organomegaly. No abdominal bruits. Extremities: Bilateral lower extremity venous stasis changes and discoloration. Left lower extremity wound over the pop. No discharge noted.. No clubbing or cyanosis Neurologically awake, alert, oriented x 2-3 able to move all extremities. No gross focal deficits noted Skin: No rash or skin lesions. Psychiatric: Coperative. Nonsuicidal Musculoskeletal: No joint swelling or deformity. Normal range of motion. Results CBC & Chem 7: 07/12/24 02:47 07/12/24 02:47 Labs: Abnormal Lab Results - Last 24 Hours (Table) 07/10/24 07/10/2407/10/24 Range/Units 03:20 03:58 03:59 RBC 3.36 L (4.30-5.90) m/uL Hgb 11.3 L (13.0-17.5) gm/dL Hct 34.5 L (39.0-53.0) % MCV 102.6 H (80.0-100.0) fL RDW 16.7 H (11.5-15.5) % Plt Count 145 L (150-450) k/uL Chloride (98-107) mmol/L Carbon Dioxide (22-30) mmol/L BUN (9-20) mg/dL Creatinine (0.66-1.25) mg/dL Glucose (74-99) mg/dL POC Glucose (mg/dL) 215 H (70-110) mg/dL Calcium (8.4-10.2) mg/dL Total Bilirubin (0.2-1.3) mg/dL AST (17-59) U/L Albumin (3.5-5.0) g/dL Urine Glucose (UA) 4+ H (Negative) U Benzodiazepines Scrn Detected H (NotDetected) 07/10/24 Range/Units 03:59 RBC (4.30-5.90) m/uL Hgb (13.0-17.5) gm/dL Hct (39.0-53.0) % MCV (80.0-100.0) fL RDW (11.5-15.5) % Plt Count (150-450) k/uL Chloride 108 H (98-107) mmol/L Carbon Dioxide 21 L (22-30) mmol/L BUN <2 L (9-20) mg/dL Creatinine 0.52 L (0.66-1.25) mg/dL Glucose 234 H (74-99) mg/dL POC Glucose (mg/dL) (70-110) mg/dL Calcium 7.5 L (8.4-10.2) mg/dL Total Bilirubin 1.4 H (0.2-1.3) mg/dL AST 93 H (17-59) U/L Albumin 3.4 L (3.5-5.0) g/dL Urine Glucose (UA) (Negative) U Benzodiazepines Scrn (NotDetected) Thrombosis Risk Factor Assmnt - DVT/VTE Prophylaxis DVT/VTE Prophylaxis: Pharmacologic Prophylaxis ordered Assessment and Plan Assessment: Acute alcohol intoxication status post fall due to intoxication Generalized weakness Hyperglycemia with uncontrolled diabetes type 2 Hypomagnesemia Mild hyperbilirubinemia and elevated AST level greater than ALT Anemia and thrombocytopenia and macrocytosis DVT prophylaxis with heparin subcu GI prophylax with PPI Plan: Patient will be continued on IV hydration with normal saline. Continue thiamine and folic acid. Started on insulin Levemir 10 units daily along with insulin sliding scale for better blood sugar control. Continue to monitor for withdrawal symptoms and CIWA protocol. PT OT will be consulted. Follow-up closely. Prognosis is guarded. Time with Patient: Greater than 30
[2024-07-10] MEDS: HEPARIN SODIUM,PORCINE 5,000 UNIT/ML 1 ML VIAL SQ SCH (23:55)
[2024-07-10] MEDS: SODIUM CHLORIDE 0.9% 1,000 ML IV SCH (23:55)
[2024-07-11 06:42] LABS: Glucose,Whole Blood 170 mg/dL (70-110)
--- NOTE | 2024-07-11 07:17 | XR ---
EXAMINATION TYPE: XR chest 1V DATE OF EXAM: 07/11/2024 5:09 AM COMPARISON: Chest radiographs from 05/11/2023 CLINICAL INDICATION: Male, 59 years old with history of Fever; TECHNIQUE: XR chest 1V Frontal view of the chest. FINDINGS: Lungs/Pleura: There is no evidence of pleural effusion, focal consolidation, or pneumothorax. Pulmonary vascularity: Unremarkable. Heart/mediastinum: Cardiomediastinal silhouette is unremarkable. Musculoskeletal: No acute osseous pathology. IMPRESSION: No acute cardiopulmonary disease/process. [facility], Workstation: [id number], 07/11/2024 7:15 AM
[2024-07-11 09:03] LABS: ALT 22 U/L (10-49); AST 41 U/L (14-35); Albumin 2.6 g/dL (3.8-4.9); Albumin/Globulin Ratio 1.13 Ratio (1.60-3.17); Alkaline Phosphatase 62 U/L (41-126); BUN/Creat Ratio <5.83 Ratio (12.00-20.00); Blood Urea Nitrogen <3.5 mg/dL (9.0-27.0); Carbon Dioxide 24.4 mmol/L (21.6-31.8); Chloride 104 mmol/L (96-109); Globulin 2.3 g/dL (1.6-3.3); Glucose 182 mg/dL (70-110); Potassium 3.8 mmol/L (3.5-5.5); Sodium 140 mmol/L (135-145); Total Bilirubin 0.8 mg/dL (0.3-1.2); Total Protein 4.9 g/dL (6.2-8.2)
[2024-07-11 09:14] LABS: Basophils # (A) 0.02 X 10*3/uL (0.00-0.10); Basophils % (A) 0.4 %; Eosinophils # (A) 0 X 10*3/uL (0.04-0.35); Eosinophils % (A) 0 %; HCT 29.2 % (39.6-50.0); HGB 10.1 g/dL (13.0-17.0); Lymphocytes # (A) 0.95 X 10*3/uL (0.90-5.00); Lymphocytes % (A) 20.9 %; MCH 32.8 pg (27.0-32.0); MCHC 34.6 g/dL (32.0-37.0); MCV 94.8 FL (80.0-97.0); Monocytes # (A) 0.64 X 10*3/uL (0.20-1.00); Monocytes % (A) 14.1 %; NRBC Per 100 WBC 0 X 10*3/uL (0.00-0.01); Neutrophils # (A) 2.92 X 10*3/uL (1.80-7.70); Neutrophils % (A) 64.4 %; Platelet Count 160 X 10*3/uL (140-440); RBC 3.08 X 10*6/uL (4.40-5.60); RDW 16.5 % (11.5-14.5); WBC 4.54 X 10*3/uL (4.50-10.00)
[2024-07-11 11:39] LABS: Glucose,Whole Blood 244 mg/dL (70-110)
[2024-07-11 17:09] LABS: Glucose,Whole Blood 181 mg/dL (70-110)
[2024-07-11 20:50] LABS: Glucose,Whole Blood 205 mg/dL (70-110)
[2024-07-12 03:07] VITALS: RESP 17
[2024-07-12 06:37] LABS: Glucose,Whole Blood 219 mg/dL (70-110)
[2024-07-12 08:28] LABS: Basophils # (A) 0.01 X 10*3/uL (0.00-0.10); Basophils % (A) 0.2 %; Eosinophils # (A) 0.02 X 10*3/uL (0.04-0.35); Eosinophils % (A) 0.4 %; HCT 28.7 % (39.6-50.0); Lymphocytes # (A) 1.07 X 10*3/uL (0.90-5.00); Lymphocytes % (A) 23.2 %; MCH 33.4 pg (27.0-32.0); MCHC 34.8 g/dL (32.0-37.0); Mean Platelet Volume 9.9 FL (9.5-12.2); Monocytes # (A) 0.46 X 10*3/uL (0.20-1.00); NRBC Per 100 WBC 0 X 10*3/uL (0.00-0.01); Neutrophils # (A) 3.04 X 10*3/uL (1.80-7.70); Platelet Count 169 X 10*3/uL (140-440); RBC 2.99 X 10*6/uL (4.40-5.60); RDW 16.5 % (11.5-14.5); WBC 4.61 X 10*3/uL (4.50-10.00)
[2024-07-12 09:39] LABS: BUN/Creat Ratio <5.83 Ratio (12.00-20.00); Blood Urea Nitrogen <3.5 mg/dL (9.0-27.0); Calcium 8.2 mg/dL (8.7-10.3); Carbon Dioxide 25.7 mmol/L (21.6-31.8); Chloride 102 mmol/L (96-109); Glucose 188 mg/dL (70-110); Potassium 3.8 mmol/L (3.5-5.5); Sodium 137 mmol/L (135-145)
--- NOTE | 2024-07-12 10:10 | P.PN ---
Subjective Progress Note Date: 07/11/24 Patient is a 59-year-old male with a past medical history of hypertension, hyperlipidemia, diabetes type 2 and low back pain was brought to hospital by EMS due to alcohol intoxication and fall. Patient states that he drinks about 6 to 12 cans of beer a day on daily basis. Patient states that he tripped over the step to go up stairs at home and fell on the floor. His cousin is living with the patient who called EMS. He is also partial legal guardian due to prior history of falls and weakness. Denied any hitting his head. Denied any loss of consciousness. No complaints of chest pain or shortness. No nausea vomiting abdominal pain or diarrhea. No cough or sputum production. No fever or chills. EKG showed sinus rhythm. Laboratory data showed WBC 5.6 hemoglobin 11.3 and MCV 102.6 and platelets 145 Sodium 137 potassium 4.6 chloride 108 bicarb is 21 BUN less than 20 creatinine 0.52 and blood sugar 205 and calcium 7 point revocation 1.7 total bili 1.8 AST 93 ALT 34 and alk phos 201 and albumin 3.4 urinalysis showed 4+ glucose leukocyte esterase negative UDS is positive for benzodiazepines and serum alcohol level is 182 07/11/2024 Patient is resting in the bed. Awake alert and oriented x 3. No complaints of chest pain or shortness of breath. No nausea vomiting abdominal pain or diar mario. Tolerating oral diet. Lower extremity wound dressing was done. Patient has been afebrile. No other acute overnight issues. Laboratory data showed WBC 4.5 hemoglobin 10.1 and platelets 168 sodium 140 potassium 3.8 chloride 104 BUN 11.6 and creatinine 0.6 and blood sugar 182 A1c 9.9 well evidence of trending down. Current medications reviewed. Objective - Vital Signs Vital signs: Vital Signs Temp 98.3 F 07/11/24 14:16 Pulse 93 07/11/24 14:16 Resp 17 07/11/24 14:16 BP 113/73 07/11/24 14:16 Pulse Ox 100 07/11/24 14:16 FiO2 Intake & Output 07/11/24 07/11/24 07/12/24 06:59 18:59 06:59 Intake Total Balance Intake: Oral Other: Voiding Method Toilet Urinal Incontinent # Voids 4 # Bowel Movements - Exam PHYSICAL EXAMINATION: Patient is lying in the bed, no acute distress, awake alert and oriented. Drowsy and lethargic.. HEENT: Normocephalic. Neck is supple. Pupils reactive. Nostrils clear. Oral cavity is moist. Neck reveals no JVD, carotid bruits, or thyromegaly. CHEST EXAMINATION: Trachea is central. Symmetrical expansion. Lung renteria clear to auscultation and percussion. CARDIAC: Normal S1, S2 with no gallops. No murmurs ABDOMEN: Soft. Bowel sounds normal. No organomegaly. No abdominal bruits. Extremities: Bilateral lower extremity venous stasis changes and discoloration. Left lower extremity wound over the pop. No discharge noted.. No clubbing or cyanosis Neurologically awake, alert, oriented x 2-3 able to move all extremities. No gross focal deficits noted Skin: No rash or skin lesions. Psychiatric: Coperative. Nonsuicidal Musculoskeletal: No joint swelling or deformity. Normal range of motion. - Labs CBC & Chem 7: 07/12/24 02:47 07/12/24 02:47 Labs: Abnormal Lab Results - Last 24 Hours (Table) 07/11/24 07/11/24 07/11/24 Range/Units 03:32 03:32 03:32 RBC 3.08 L (4.40-5.60) X 10*6/uL Hgb 10.1 L (13.0-17.0) g/dL Hct 29.2 L (39.6-50.0) % MCH 32.8 H (27.0-32.0) pg RDW 16.5 H (11.5-14.5) % Eosinophils # 0 L (0.04-0.35) X 10*3/uL BUN <3.5 L (9.0-27.0) mg/dL BUN/Creatinine Ratio <5.83 L (12.00-20.00) Ratio Glucose 182 H (70-110) mg/dL POC Glucose (mg/dL) (70-110) mg/dL Hemoglobin A1c 9.9 H (<=6.0) % Calcium 8.0 L (8.7-10.3) mg/dL AST 41 H (14-35) U/L Total Protein 4.9 L (6.2-8.2) g/dL Albumin 2.6 L (3.8-4.9) g/dL Albumin/Globulin Ratio 1.13 L (1.60-3.17) Ratio 07/11/24 07/11/24 07/11/24 Range/Units 06:40 11:37 17:08 RBC (4.40-5.60) X 10*6/uL Hgb (13.0-17.0) g/dL Hct (39.6-50.0) % MCH (27.0-32.0) pg RDW (11.5-14.5) % Eosinophils # (0.04-0.35) X 10*3/uL BUN (9.0-27.0) mg/dL BUN/Creatinine Ratio (12.00-20.00) Ratio Glucose (70-110) mg/dL POC Glucose (mg/dL) 170 H 244 H 181 H (70-110) mg/dL Hemoglobin A1c (<=6.0) % Calcium (8.7-10.3) mg/dL AST (14-35) U/L Total Protein (6.2-8.2) g/dL Albumin (3.8-4.9) g/dL Albumin/Globulin Ratio (1.60-3.17) Ratio 07/11/24 Range/Units 20:49 RBC (4.40-5.60) X 10*6/uL Hgb (13.0-17.0) g/dL Hct (39.6-50.0) % MCH (27.0-32.0) pg RDW (11.5-14.5) % Eosinophils # (0.04-0.35) X 10*3/uL BUN (9.0-27.0) mg/dL BUN/Creatinine Ratio (12.00-20.00) Ratio Glucose (70-110) mg/dL POC Glucose (mg/dL) 205 H (70-110) mg/dL Hemoglobin A1c (<=6.0) % Calcium (8.7-10.3) mg/dL AST (14-35) U/L Total Protein (6.2-8.2) g/dL Albumin (3.8-4.9) g/dL Albumin/Globulin Ratio (1.60-3.17) Ratio Assessment and Plan Assessment: Acute alcohol intoxication status post fall due to intoxication Generalized weakness and debility Hyperglycemia with uncontrolled diabetes type 2. A1c 9.9 Hypomagnesemia. Replaced. Mild hyperbilirubinemia and elevated AST level greater than ALT Anemia and thrombocytopenia and macrocytosis DVT prophylaxis with heparin subcu GI prophylax with PPI Plan: Patient will be continued on IV hydration with normal saline. Continue thiamine and folic acid. Started on insulin Levemir 10 units daily along with insulin sliding scale for better blood sugar control. Continue to monitor for withdrawal symptoms and CIWA protocol. PT OT will be consulted. Continue with wound care of the lower extremities. Follow-up closely. Patient may need rehab transfer. Prognosis is guarded.
[2024-07-12 11:29] LABS: Glucose,Whole Blood 236 mg/dL (70-110)
[2024-07-12 14:36] VITALS: BP 120/69; PULSE 98; TEMP 98.7
[2024-07-12 15:48] VITALS: BMI 28.8
[2024-07-13] MEDS ORDERED: INSULIN DETEMIR (LEVEMIR) 100 UNIT/ML SYR SQ SCH (07:00)
--- NOTE | 2024-07-31 13:27 | P.DS ---
Providers Date of admission: 07/10/24 07:12 Expected date of discharge: 07/12/24 Attending physician: Julien Graf Primary care physician: Reinaldo Hubbard Hospital Course: Discharge diagnosis Acute alcohol intoxication status post fall due to intoxication Generalized weakness and debility Hyperglycemia with uncontrolled diabetes type 2. A1c 9.9 Hypomagnesemia. Replaced. Mild hyperbilirubinemia and elevated AST level greater than ALT Anemia and thrombocytopenia and macrocytosis DVT prophylaxis with heparin subcu GI prophylax with PPI Hospital course Patient is a 59-year-old male with a past medical history of hypertension, hyper lipidemia, diabetes type 2 and low back pain was brought to hospital by EMS due to alcohol intoxication and fall. Patient states that he drinks about 6 to 12 cans of beer a day on daily basis. Patient states that he tripped over the step to go up stairs at home and fell on the floor. His cousin is living with the patient who called EMS. He is also partial legal guardian due to prior history of falls and weakness. Denied any hitting his head. Denied any loss of consciousness. No complaints of chest pain or shortness. No nausea vomiting abdominal pain or diarrhea. No cough or sputum production. No fever or chills. EKG showed sinus rhythm. Laboratory data showed WBC 5.6 hemoglobin 11.3 and MCV 102.6 and platelets 145 Sodium 137 potassium 4.6 chloride 108 bicarb is 21 BUN less than 20 creatinine 0.52 and blood sugar 205 and calcium 7 point revocation 1.7 total bili 1.8 AST 93 ALT 34 and alk phos 201 and albumin 3.4 urinalysis showed 4+ glucose leukocyte esterase negative UDS is positive for benzodiazepines and serum alcohol level is 182 07/11/2024 Patient is resting in the bed. Awake alert and oriented x 3. No complaints of chest pain or shortness of breath. No nausea vomiting abdominal pain or diarrhea. Tolerating oral diet. Lower extremity wound dressing was done. Patient has been afebrile. No other acute overnight issues. Laboratory data showed WBC 4.5 hemoglobin 10.1 and platelets 168 sodium 140 potassium 3.8 chloride 104 BUN 11.6 and creatinine 0.6 and blood sugar 182 A1c 9.9 well evidence of trending down. 07/12/2024 Patient is lying in the bed. Awake alert and oriented x 3. Feels better today. No nausea or vomiting. Tolerating oral diet. No complaints of chest pain or shortness of breath. No headache or dizziness or lightheadedness. Patient is being continued on alcohol withdrawal protocol but clinically improved. Laboratory data showed WBC 4.6 hemoglobin 10.0 and platelets 169 sodium 137 potassium 3.8 chloride 102 bicarb is 25.7 BUN 3.5 creatinine 0.6 and blood sugar 188 and calcium 8.2. Patient is being discharged home today.Does not want to go to rehab. PHYSICAL EXAMINATION: Patient is lying in the bed, no acute distress, awake alert and oriented. Drowsy and lethargic.. HEENT: Normocephalic. Neck is supple. Pupils reactive. Nostrils clear. Oral cavity is moist. Neck reveals no JVD, carotid bruits, or thyromegaly. CHEST EXAMINATION: Trachea is central. Symmetrical expansion. Lung renteria clear to auscultation and percussion. CARDIAC: Normal S1, S2 with no gallops. No murmurs ABDOMEN: Soft. Bowel sounds normal. No organomegaly. No abdominal bruits. Extremities: Bilateral lower extremity venous stasis changes and discoloration. Left lower extremity wound over the pop. No discharge noted.. No clubbing or cyanosis Neurologically awake, alert, oriented x 2-3 able to move all extremities. No gross focal deficits noted Skin: No rash or skin lesions. Psychiatric: Coperative. Nonsuicidal Musculoskeletal: No joint swelling or deformity. Normal range of motion. Discharge vitals reviewed. Patient Condition at Discharge: Stable Plan - Discharge Summary Discharge Rx Participant: No New Discharge Prescriptions: New Insulin Detemir (Levemir) [Levemir] 15 unit SQ DAILY@0700 each Continue Empagliflozin [Jardiance] 25 mg PO DAILY Thiamine [Vitamin B-1] 100 mg PO DAILY #15 tab Pantoprazole Sodium [Protonix] 20 mg PO DIRECTED lisinopriL 2.5 mg PO DAILY Cholecalciferol (Vitamin D3) [Vitamin D3 (50 Mcg = 2000 Iu)] 50 mcg PO DAILY Rosuvastatin [Crestor] 10 mg PO HS Folic Acid 1 mg PO DIRECTED Discontinued Insulin Glargine,Hum.rec.anlog [Lantus Solostar Pen] 10 units SQ DAILY Discharge Medication List Empagliflozin [Jardiance] 25 mg PO DAILY 02/21/23 [History] lisinopriL 2.5 mg PO DAILY 02/21/23 [History] Thiamine [Vitamin B-1] 100 mg PO DAILY #15 tab 08/18/23 [Rx] Cholecalciferol (Vitamin D3) [Vitamin D3 (50 Mcg = 2000 Iu)] 50 mcg PO DAILY 07/10/24 [History] Folic Acid 1 mg PO DIRECTED 07/10/24 [History] Pantoprazole Sodium [Protonix] 20 mg PO DIRECTED 07/10/24 [History] Rosuvastatin [Crestor] 10 mg PO HS 07/10/24 [History] Insulin Detemir (Levemir) [Levemir] 15 unit SQ DAILY@0700 each 07/12/24 [Rx] Follow up Appointment(s)/Referral(s): Reinaldo Hubbard [Primary Care Provider] - 1-2 days [facility] Vis[facility] Nurse, [NON-STAFF] - As Needed Lukas Sheldon MD [REFERRING] - 1 Week Discharge/Stand Alone Forms: AA Meetings [place], Outpatient Counseling, Inp Substance Abuse Facilities Discharge Disposition: HOME WITH HOME HEALTH SERVICES
== END 2024-07-12 16:14 | disposition home health service (06) ==
LOC: EC 02:25 → 5NMEDONC 07:12 → 4SSUR 09:42
PROVIDERS: ADMIT Internal Medicine; ATTEND Internal Medicine
DX: F10.129 Alcohol abuse with intoxication, unspecified (principal); Y90.6 Blood alcohol level of 120-199 mg/100 ml; E11.65 Type 2 diabetes mellitus with hyperglycemia; E78.5 Hyperlipidemia, unspecified; I10 Essential (primary) hypertension; R53.1 Weakness; E83.42 Hypomagnesemia; R74.01 Elevation of levels of liver transaminase levels; D64.9 Anemia, unspecified; D69.6 Thrombocytopenia, unspecified; D75.89 Other specified diseases of blood and blood-forming organs; E80.6 Other disorders of bilirubin metabolism; R53.81 Other malaise; Z91.81 History of falling; Z79.84 Long term (current) use of oral hypoglycemic drugs; Z79.899 Other long term (current) drug therapy
CPT/HCPCS: 96365; 96366; 96372 ×4; 82075; 99285; 36415; 93005; 97161; 97165; 83880; 80053 ×2; 80048; 83735; 85025 ×3; 85610; 81003; 80306; 83036; 71045; G0378 ×4; G0480; J1644 ×3; J3411; J3475; 80320